=== PATIENT | female | born 1975 | race Caucasian/White ===

== ENCOUNTER 2025-08-28 07:24 | Inpatient (IN) | payer MEDICARE, SELFPAY ==
[2025-08-28] VITALS (29 sets, daily range): BP systolic 132–187; BP diastolic 62–115; PULSE 88–119; RESP 10–22; TEMP 36.5–37.9; O2SAT 97–100; BMI 23.5; BMI 25.5
--- NOTE | 2025-08-28 07:32 | ED.GENADULT ---
HPI - General Adult General Chief complaint: Abdominal Pain Stated complaint: High Blood Sugar Time Seen by Provider: 08/28/25 07:31 History of Present Illness HPI narrative: Patient is a 50-year-old female history of insulin-dependent diabetes gastric ulcer presenting today with elevated glucose. She reports that her sugars been quite high in the 500 she has given herself 100 units of insulin over last 24 hours 10 units at a time to help bring it down she got it down to 130 but it bout stripe backup. She also reports multiple episodes of rancid smelling diarrhea nausea and vomiting. She thinks she is having dark tarry stools and vomiting blood as well similar to when she had a gastric ulcer. Dizzy lightheaded and having some abdominal pain and cramping. She has not been on any antibiotics lately. No fever or chills. Related Data Home Medications ?Medication ?Instructions ?Recorded ?Confirmed insulin degludec 100 unit/mL 25 unit SUBCUT DAILY 08/28/25 08/28/25 subcutaneous solution (Tresiba U-100 Insulin) insulin lispro 100 unit/mL 1 sliding scale dose SUBCUT 08/28/25 08/28/25 subcutaneous pen (Humalog KwikPen USEASDIRECTD (U-100) Insulin) Allergies Allergy/AdvReac Type Severity Reaction Status Date / Time Sulfa (Sulfonamide Allergy Unknown Verified 08/28/25 07:30 Antibiotics) morphine AdvReac Unknown Verified 08/28/25 07:30 Patient History Social History household members: family and friend(s) Smoking Status: Current some day smoker alcohol intake: never Exam Initial Vital Signs Initial Vital Signs: Vital Signs Pulse Rate 115 H 08/28/25 07:29 Pulse Oximetry 98 08/28/25 07:29 GENERAL: Alert 42-year-old female appears unwell HEENT: Head atraumatic,EOMI, pupils reactive, face symmetric, moist mucous membranes CARDIOVASCULAR: Regular rate and rhythm without murmurs, rubs or gallops. RESPIRATORY: Breath sounds equal bilaterally, no wheezes rales or rhonchi. ABDOMEN: Soft, minimally tender no guarding or rebound RECTAL: Guaiac-positive no gross blood or melena : No CVA tenderness EXTREMITIES: Normal range of motion, no clubbing or edema. Neurovascularly intact NEUROLOGICAL: Alert and oriented x4.Normal gait and speech. Cranial nerves II through XII grossly intact. SKIN: Warm, dry, no laceration, no petechiae, no rashes or lesions. Course Orders Ordered: ED Orders 08/28/25 07:30 Complete Blood Count AUTO DIFF Stat Comprehensive Metabolic Panel Stat Ketones (Beta-Hydroxybutyrate) Stat Lactate (Lactic Acid) Stat Lipase Stat Magnesium Stat NT-proBNP (BNP-Adult 18+) Stat Troponin I Stat 08/28/25 07:37 Venous Blood Gas Routine 08/28/25 07:38 XR chest 1V Stat EKG-12 Lead Stat VBG [Venous Blood Gas] STAT 08/28/25 07:43 CT angio Abd/Pel GI Bleed Stat 08/28/25 07:50 Type and Screen Stat 08/28/25 08:38 Blood Culture Stat 08/28/25 11:00 BMP [Basic Metabolic Panel] Stat Urine Culture Stat Urine Microscopic Stat 08/28/25 11:37 Consult to Dietitian, Adult Routine 08/28/25 12:15 Basic Metabolic Panel Q4H 08/28/25 15:45 Basic Metabolic Panel Q4H 08/28/25 19:45 Basic Metabolic Panel Q4H 08/29/25 05:00 Basic Metabolic Panel DAILY Complete Blood Count AUTO DIFF DAILY Magnesium DAILY 08/30/25 05:00 Basic Metabolic Panel DAILY Complete Blood Count AUTO DIFF DAILY Magnesium DAILY 08/31/25 05:00 Basic Metabolic Panel DAILY Complete Blood Count AUTO DIFF DAILY Magnesium DAILY Acetaminophen (Acetaminophen 325 Mg Tablet) 650 mg PO Q6H PRN PRN Reason: Fever/Mild Pain (1-3) INSULIN DRIP PREMIX (Myxredlin Drip Premix) 100 unit in 100 mls @ 6.804 mls/hr IV TITRATE JAYJAY; Protocol Last Titration: 08/28/25 14:34 Dose: 0.11 unit/kg/hr, 7.4 mls/hr Documented By: Co-signed By: NIKO Admin: 08/28/25 08:21 Dose: 0.1 unit/kg/hr, 6.804 mls/hr Documented By: AKYLA Co-signed By: GHASSAN Sodium Chloride (Normal Saline 0.45%) 1,000 mls @ 125 mls/hr IV CONT JAYJAY Last Infusion: 08/28/25 12:47 Dose: Infused Documented By: Admin: 08/28/25 09:44 Dose: 125 mls/hr Documented By: KAYLA Dextrose (D10w) 100 mls @ 999 mls/hr IV PRN PRN PRN Reason: Hypoglycemia Dextrose/Sodium Chloride (Dextrose 5%-0.45% Ns) 1,000 mls @ 150 mls/hr IV CONT JAYJAY Last Admin: 08/28/25 12:42 Dose: 150 mls/hr Documented By: KAYLA Sodium Chloride (Normal Saline 0.9%) 1,000 mls @ 150 mls/hr IV CONT JAYJAY Metoclopramide HCl (Metoclopramide 10 Mg/2 Ml Inj) 10 mg IV Q4H PRN PRN Reason: Nausea And Vomiting Naloxone HCl (Naloxone 0.4 Mg/Ml Vial) 0.2 mg IV Q2MIN PRN PRN Reason: Opiate Reversal Ondansetron HCl (Ondansetron 4 Mg/2 Ml Inj) 4 mg IV Q4HR PRN PRN Reason: Nausea And Vomiting Pantoprazole Sodium (Pantoprazole 40 Mg Vial) 40 mg IV DAILY JAYJAY Discontinued Medications Sodium Chloride (Normal Saline 0.9%) 1,000 mls @ 1,000 mls/hr IV BOLUS ONE Stop: 08/28/25 08:37 Last Infusion: 08/28/25 09:04 Dose: Infused Documented By: Admin: 08/28/25 07:55 Dose: 1,000 mls/hr Documented By: KAYLA Sodium Chloride (Normal Saline 0.9%) 1,000 mls @ 1,000 mls/hr IV BOLUS ONE Stop: 08/28/25 09:11 Last Infusion: 08/28/25 09:45 Dose: Infused Documented By: Admin: 08/28/25 08:20 Dose: 1,000 mls/hr Documented By: KAYLA Ceftriaxone Sodium 1,000 mg/ (Sodium Chloride) 100 mls @ 200 mls/hr IV NOW ONE Stop: 08/28/25 09:43 Last Infusion: 08/28/25 10:38 Dose: Infused Documented By: Admin: 08/28/25 09:46 Dose: 200 mls/hr Documented By: KAYLA Sodium Chloride (Normal Saline 0.9%) 1,000 mls @ 999 mls/hr IV BOLUS ONE Stop: 08/28/25 12:34 Last Admin: 08/28/25 12:18 Dose: Not Given Documented By: KAYLA Metoclopramide HCl (Metoclopramide 10 Mg/2 Ml Inj) 10 mg IV NOW ONE Stop: 08/28/25 09:29 Last Admin: 08/28/25 09:33 Dose: 10 mg Documented By: KAYLA Pantoprazole Sodium (Pantoprazole 40 Mg Vial) 80 mg IV NOW ONE Stop: 08/28/25 07:39 Last Admin: 08/28/25 07:55 Dose: 80 mg Documented By: KAYLA Pantoprazole Sodium (Pantoprazole 40 Mg Vial) 40 mg IV DAILY JAYJAY Last Admin: 08/28/25 12:18 Dose: Not Given Documented By: KAYLA Vital Signs Vital signs: Vital Signs - 8 hr 08/28/25 07:29 08/28/25 07:30 08/28/25 07:30 Temperature Pulse Rate 115 H 119 H Respiratory Rate 18 Blood Pressure 180/82 H 159/72 H Pulse Oximetry 98 98 Oxygen Delivery Method Room Air 08/28/25 07:30 08/28/25 07:52 08/28/25 08:00 Temperature 97.7 F Pulse Rate 111 H 112 H Respiratory Rate 11 L 16 Blood Pressure Pulse Oximetry 99 99 Oxygen Delivery Method 08/28/25 08:00 08/28/25 08:29 08/28/25 08:29 Temperature Pulse Rate 113 H Respiratory Rate 14 Blood Pressure 177/71 H 167/115 H Pulse Oximetry 100 Oxygen Delivery Method 08/28/25 08:30 08/28/25 08:30 08/28/25 09:00 Temperature Pulse Rate 115 H Respiratory Rate 13 Blood Pressure 187/83 H 173/76 H Pulse Oximetry 100 Oxygen Delivery Method 08/28/25 09:00 08/28/25 09:30 08/28/25 09:30 Temperature Pulse Rate 116 H 109 H Respiratory Rate 13 14 Blood Pressure 153/79 H Pulse Oximetry 100 99 Oxygen Delivery Method 08/28/25 10:00 08/28/25 10:00 08/28/25 10:30 Temperature Pulse Rate 108 H Respiratory Rate 14 Blood Pressure 142/72 H 140/73 Pulse Oximetry 97 Oxygen Delivery Method 08/28/25 10:30 08/28/25 10:59 08/28/25 10:59 Temperature Pulse Rate 104 H 107 H Respiratory Rate 14 10 L Blood Pressure 153/77 H Pulse Oximetry 97 98 Oxygen Delivery Method 08/28/25 11:00 08/28/25 11:00 08/28/25 11:30 Temperature Pulse Rate 108 H 108 H Respiratory Rate 14 22 Blood Pressure 145/70 H Pulse Oximetry 98 99 Oxygen Delivery Method 08/28/25 11:30 08/28/25 12:00 08/28/25 12:00 Temperature Pulse Rate 107 H Respiratory Rate 15 Blood Pressure 158/72 H 147/68 H Pulse Oximetry 97 Oxygen Delivery Method 08/28/25 12:11 08/28/25 12:11 08/28/25 12:30 Temperature Pulse Rate 107 H 106 H Respiratory Rate 15 10 L Blood Pressure 146/68 H Pulse Oximetry 99 99 Oxygen Delivery Method 08/28/25 12:30 Temperature Pulse Rate Respiratory Rate Blood Pressure 161/74 H Pulse Oximetry Oxygen Delivery Method Medical Decision Making Lab Data 08/28/25 07:30 08/28/25 12:15 Labs: Lab Results 08/28/25 08/28/25 08/28/25 Range/Units 07:30 07:32 07:37 WBC 19.4 H (4.5-11.0) X10^3/uL RBC 5.40 H (4.0-5.2) X10^6/uL Hgb 15.6 (12.0-16.0) g/dL Hct 47.6 H (36-46) % MCV 88.1 (80-100) fL MCH 28.8 (26-34) PG MCHC 32.7 (30-36) % RDW 13.9 (11.6-14.8) % Plt Count 250 (150-400) X10^3/uL Neut % (Auto) 92.3 H (50-75) % Lymph % (Auto) 5.8 L (25-40) % Gillespie % (Auto) 1.5 L (3-14) % Eos % (Auto) 0.0 L (2-4) % Baso % (Auto) 0.4 (0-2) % Neut # (Auto) 48017 H (6370-6127) /uL Lymph # (Auto) 1100 (8156-2779) /uL Gillespie # (Auto) 300 (0-900) /uL Eos # (Auto) 0 (0-450) /uL Baso # (Auto) 100 (0-100) /uL VBG pH 7.23 L (7.33-7.43) VBG pCO2 17.9 L (45-50) mmHg VBG pO2 56 H (35-45) mmHg VBG HCO3 8 L (24-28) mmol/L VBG Total CO2 7 L (24-29) mmol/L VBG O2 Saturation 84 H (70-75) % VBG Base Excess -17.3 L (0-4) mmol/L Sodium 143 (137-145) mmol/L Potassium 4.8 (3.4-5.1) mmol/L Chloride 108 H (98-107) mmol/L Carbon Dioxide < 5 L* (22-32) mmol/L BUN 22 H (7-17) mg/dL Creatinine 0.85 (0.52-1.04) mg/dL Estimated GFR > 60 (>60) mL/min BUN/Creatinine Ratio 25.9 H (6-22) Glucose 548 H* (70-99) mg/dL POC Whole Bld Glucose 491 H* (70-99) mg/dL Lactate 1.8 (0.7-2.1) mmol/L Calcium 9.2 (8.4-10.2) mg/dL Magnesium 1.9 (1.6-2.3) mg/dL Total Bilirubin 0.8 (0.2-1.3) mg/dL AST 26 (14-36) IU/L ALT 20 (<35) IU/L Alkaline Phosphatase 106 (38-126) U/L Troponin I < 0.012 (0.01-0.034) ng/mL NT-Pro-B Natriuret Pep 195 H (<125) pg/mL Total Protein 8.1 (6.3-8.2) g/dL Albumin 4.8 (3.5-5.0) g/dL Globulin 3.3 (1.7-4.1) g/dL Albumin/Globulin Ratio 1.5 (1.0-2.8) Lipase 60 (23-300) U/L Urine RBC (0-5/HPF) Urine WBC (0-5/HPF) Ur Squamous Epith Cells (0-5/HPF) Urine Bacteria (None) Ur Culture Indicated? Vol Urine Centrifuged Ketones 10.3 H (<0.27) mmol/L Blood Type Antibody Screen 08/28/25 08/28/25 08/28/25 Range/Units 07:50 09:24 10:33 WBC (4.5-11.0) X10^3/uL RBC (4.0-5.2) X10^6/uL Hgb (12.0-16.0) g/dL Hct (36-46) % MCV (80-100) fL MCH (26-34) PG MCHC (30-36) % RDW (11.6-14.8) % Plt Count (150-400) X10^3/uL Neut % (Auto) (50-75) % Lymph % (Auto) (25-40) % Gillespie % (Auto) (3-14) % Eos % (Auto) (2-4) % Baso % (Auto) (0-2) % Neut # (Auto) (0907-6802) /uL Lymph # (Auto) (4687-4874) /uL Gillespie # (Auto) (0-900) /uL Eos # (Auto) (0-450) /uL Baso # (Auto) (0-100) /uL VBG pH (7.33-7.43) VBG pCO2 (45-50) mmHg VBG pO2 (35-45) mmHg VBG HCO3 (24-28) mmol/L VBG Total CO2 (24-29) mmol/L VBG O2 Saturation (70-75) % VBG Base Excess (0-4) mmol/L Sodium (137-145) mmol/L Potassium (3.4-5.1) mmol/L Chloride (98-107) mmol/L Carbon Dioxide (22-32) mmol/L BUN (7-17) mg/dL Creatinine (0.52-1.04) mg/dL Estimated GFR (>60) mL/min BUN/Creatinine Ratio (6-22) Glucose (70-99) mg/dL POC Whole Bld Glucose 427 H 337 H (70-99) mg/dL Lactate (0.7-2.1) mmol/L Calcium (8.4-10.2) mg/dL Magnesium (1.6-2.3) mg/dL Total Bilirubin (0.2-1.3) mg/dL AST (14-36) IU/L ALT (<35) IU/L Alkaline Phosphatase (38-126) U/L Troponin I (0.01-0.034) ng/mL NT-Pro-B Natriuret Pep (<125) pg/mL Total Protein (6.3-8.2) g/dL Albumin (3.5-5.0) g/dL Globulin (1.7-4.1) g/dL Albumin/Globulin Ratio (1.0-2.8) Lipase (23-300) U/L Urine RBC (0-5/HPF) Urine WBC (0-5/HPF) Ur Squamous Epith Cells (0-5/HPF) Urine Bacteria (None) Ur Culture Indicated? Vol Urine Centrifuged Ketones (<0.27) mmol/L Blood Type O Negative Antibody Screen Negative 08/28/25 08/28/25 08/28/25 Range/Units 11:00 11:30 11:31 WBC (4.5-11.0) X10^3/uL RBC (4.0-5.2) X10^6/uL Hgb (12.0-16.0) g/dL Hct (36-46) % MCV (80-100) fL MCH (26-34) PG MCHC (30-36) % RDW (11.6-14.8) % Plt Count (150-400) X10^3/uL Neut % (Auto) (50-75) % Lymph % (Auto) (25-40) % Gillespie % (Auto) (3-14) % Eos % (Auto) (2-4) % Baso % (Auto) (0-2) % Neut # (Auto) (3990-6744) /uL Lymph # (Auto) (0936-7331) /uL Gillespie # (Auto) (0-900) /uL Eos # (Auto) (0-450) /uL Baso # (Auto) (0-100) /uL VBG pH (7.33-7.43) VBG pCO2 (45-50) mmHg VBG pO2 (35-45) mmHg VBG HCO3 (24-28) mmol/L VBG Total CO2 (24-29) mmol/L VBG O2 Saturation (70-75) % VBG Base Excess (0-4) mmol/L Sodium 146 H (137-145) mmol/L Potassium 3.7 (3.4-5.1) mmol/L Chloride 116 H (98-107) mmol/L Carbon Dioxide 10 L (22-32) mmol/L BUN 20 H (7-17) mg/dL Creatinine 0.79 (0.52-1.04) mg/dL Estimated GFR > 60 (>60) mL/min BUN/Creatinine Ratio 25.3 H (6-22) Glucose 316 H D (70-99) mg/dL POC Whole Bld Glucose 308 H 283 H (70-99) mg/dL Lactate (0.7-2.1) mmol/L Calcium 8.5 (8.4-10.2) mg/dL Magnesium (1.6-2.3) mg/dL Total Bilirubin (0.2-1.3) mg/dL AST (14-36) IU/L ALT (<35) IU/L Alkaline Phosphatase (38-126) U/L Troponin I (0.01-0.034) ng/mL NT-Pro-B Natriuret Pep (<125) pg/mL Total Protein (6.3-8.2) g/dL Albumin (3.5-5.0) g/dL Globulin (1.7-4.1) g/dL Albumin/Globulin Ratio (1.0-2.8) Lipase (23-300) U/L Urine RBC 5-10/hpf H (0-5/HPF) Urine WBC 1-5/hpf (0-5/HPF) Ur Squamous Epith Cells 1-5 /hpf (0-5/HPF) Urine Bacteria Occasional (0-1) (None) Ur Culture Indicated? Cult not indicated Vol Urine Centrifuged 10ml (spun) Ketones (<0.27) mmol/L Blood Type Antibody Screen 08/28/25 08/28/25 Range/Units 12:15 12:26 WBC (4.5-11.0) X10^3/uL RBC (4.0-5.2) X10^6/uL Hgb (12.0-16.0) g/dL Hct (36-46) % MCV (80-100) fL MCH (26-34) PG MCHC (30-36) % RDW (11.6-14.8) % Plt Count (150-400) X10^3/uL Neut % (Auto) (50-75) % Lymph % (Auto) (25-40) % Gillespie % (Auto) (3-14) % Eos % (Auto) (2-4) % Baso % (Auto) (0-2) % Neut # (Auto) (1997-4647) /uL Lymph # (Auto) (8150-8610) /uL Gillespie # (Auto) (0-900) /uL Eos # (Auto) (0-450) /uL Baso # (Auto) (0-100) /uL VBG pH (7.33-7.43) VBG pCO2 (45-50) mmHg VBG pO2 (35-45) mmHg VBG HCO3 (24-28) mmol/L VBG Total CO2 (24-29) mmol/L VBG O2 Saturation (70-75) % VBG Base Excess (0-4) mmol/L Sodium 146 H (137-145) mmol/L Potassium 4.1 (3.4-5.1) mmol/L Chloride 116 H (98-107) mmol/L Carbon Dioxide 12 L (22-32) mmol/L BUN 20 H (7-17) mg/dL Creatinine 0.76 (0.52-1.04) mg/dL Estimated GFR > 60 (>60) mL/min BUN/Creatinine Ratio 26.3 H (6-22) Glucose 250 H (70-99) mg/dL POC Whole Bld Glucose 238 H (70-99) mg/dL Lactate (0.7-2.1) mmol/L Calcium 8.4 (8.4-10.2) mg/dL Magnesium (1.6-2.3) mg/dL Total Bilirubin (0.2-1.3) mg/dL AST (14-36) IU/L ALT (<35) IU/L Alkaline Phosphatase (38-126) U/L Troponin I (0.01-0.034) ng/mL NT-Pro-B Natriuret Pep (<125) pg/mL Total Protein (6.3-8.2) g/dL Albumin (3.5-5.0) g/dL Globulin (1.7-4.1) g/dL Albumin/Globulin Ratio (1.0-2.8) Lipase (23-300) U/L Urine RBC (0-5/HPF) Urine WBC (0-5/HPF) Ur Squamous Epith Cells (0-5/HPF) Urine Bacteria (None) Ur Culture Indicated? Vol Urine Centrifuged Ketones (<0.27) mmol/L Blood Type Antibody Screen Point of Care Testing Glucose POC 491 Urine Dip Bedside Urine Glucose 100 mg/dl Bedside Urine Bilirubin - Negative Bedside Urine Ketone +++ 80 Urine Specific Davidson 1.015 Bedside Urine Occult Blood +++ Bedside Urine pH 6.0 Bedside Urine Protein + 30 Bedside Urine Urobilinogen - Negative Bedside Urine Nitrite - Negative Bedside Urine Leukocytes - Negative Esterase Point of care testing: Point of Care Testing Glucose POC 491 Urine Dip Bedside Urine Glucose 100 mg/dl Bedside Urine Bilirubin - Negative Bedside Urine Ketone +++ 80 Urine Specific Davidson 1.015 Bedside Urine Occult Blood +++ Bedside Urine pH 6.0 Bedside Urine Protein + 30 Bedside Urine Urobilinogen - Negative Bedside Urine Nitrite - Negative Bedside Urine Leukocytes - Negative Esterase Imaging Data CT scan - abdomen/pelvis: Radiologist's Impression: PROCEDURE: CT ANGIO ABD/PEL GI BLEED INDICATIONS: gi bleed TECHNIQUE: After the administration of intravenous contrast, 2.5 mm thick sections acquired from the diaphragm to the symphysis. 10 mm maximum-intensity projection (MIP) reformats were then acquired. For radiation dose reduction, the following was used: automated exposure control. COMPARISON: None. FINDINGS: Image Quality: Diagnostic. Abdominal aorta: No aortic aneurysm or evidence of acute aortic syndrome. Mesenteric arteries: Patent without hemodynamically significant stenosis. Renal arteries: Patent without hemodynamically significant stenosis. OTHER: Lower Chest: No significant findings. Liver: No solid mass. Gallbladder: Gallbladder surgically absent. Biliary ducts: No biliary dilation. Pancreas: No ductal dilation. Spleen: Size is within normal limits. Adrenal Glands: No adrenal nodules. Kidneys and Ureters: No hydronephrosis. No solid mass. No complex renal cystic lesion which requires follow up. Stomach and Bowel: Small bowel normal caliber. No extravasation of contrast is identified. No evidence of obstruction. The colon is decompressed somewhat limiting evaluation however there is questionable wall thickening of a long segment of the descending and sigmoid colon which may be exaggerated from underdistention. No significant diverticula. No fat stranding surrounding the colon. Normal appendix Peritoneum: No abnormal intraperitoneal fluid. No free air. Ventral Wall: No hernia. Abdominal Nodes: No retroperitoneal or mesenteric adenopathy by size criteria. Vessels: Aorta and inferior vena cava are normal in size. PELVIS: Pelvic Organs: Unremarkable. Bladder: Unremarkable. Pelvic Nodes: No enlarged lymph nodes. Miscellaneous: No inguinal hernias are seen. Bones: No aggressive osseous abnormality. IMPRESSION: No contrast extravasation identified. Long segment bowel wall thickening of the descending and sigmoid colon possibly exaggerated by underdistention, correlate for colitis. Dictated by: Sylvain Chaney M.D. on 08/28/2025 at 8:14 Approved by: Sylvain Chaney M.D. on 08/28/2025 at 8:22 Chest x-ray: Radiologist's Impression: PROCEDURE: XR CHEST 1V INDICATIONS: chest pain TECHNIQUE: One view of the chest was acquired. COMPARISON: None. FINDINGS: Surgical changes and devices: None. Lungs and pleura: Lungs are clear. No pleural effusions or pneumothorax. Mediastinum: Mediastinal contours appear normal. Heart size is normal. Bones and chest wall: No suspicious bony lesions. Overlying soft tissues appear unremarkable. IMPRESSION: No acute cardiopulmonary abnormality is seen. Dictated by: Sylvain Chaney M.D. on 08/28/2025 at 8:23 ECG Data Attestation: I personally reviewed and interpreted this ECG as follows: Prior ECG tracings: not available for review Interpretation: Normal sinus rhythm rate 114 TX interval 136 QRS [address] changes no T-wave inversion MDM Narrative Medical decision making narrative: MDM CC: Diarrhea elevated glucose Complicating co-morbidities: Insulin-dependent diabetes Data collected from: Patient Medical records reviewed: None Differential considered: GI bleed, DKA, hyperglycemia diverticulitis ischemic bowel sepsis Exam documented above, pertinent findings include: Diaphoretic minimally tender abdomen guaiac-positive tachycardic Lab Test results independently reviewed as above. Pertinent findings: Venous pH 7.23 Anion gap 30 Glucose 548 Ketone 10.3 Lactate 1.8 All consistent with DKA CBC 19, no anemia hemoglobin 15.6 hematocrit 47.6 mild left shift Chemistry panel shows a potassium of 4.8 sodium 143 Bilirubin liver enzymes within normal limits Troponin negative Independently reviewed EKG as above Sinus rhythm no ischemia Imaging studies independently reviewed: Chest x-ray no acute cardiopulmonary process CT abdomen pelvis no active bleeding concern for wall thickening possible colitis Consultations: Dr. Allison updated on patient's symptoms test results and kindly accepts patient Treatments: Protonix, insulin drip IV fluid 2 L, Rocephin Re-evaluations: Patient is feeling better no longer nauseous heart rate is improving Discussion: Patient is a 42-year-old female with history of diarrhea nausea vomiting. She is now in DKA with a pH is 7 point 2 and an anion gap of 30. She was given 2 L of IV fluids and started on insulin drip. I suspect a gastroenteritis. She has no active bleeding she is not anemic. She has blood cultures parenting empirically given a dose of Rocephin. She has not had any diarrhea here in the ED. Critical Care Time Critical Care Time Critical Care Time: Yes Total Critical Care Time: 32 Attestation: The high probability of a clinically significant, sudden or life threatening deterioration of the [cardiovascular] system(s) required my full and direct attention, intervention and personal management. The aggregate critical care time was 32 minutes. This time is in addition to time spent performing reported procedures but includes the following: [x] Data Review and interpretation [x] Patient assessment and monitoring of vital signs [x] Documentation [x] Medication orders and management Discharge Plan Departure Patient Disposition: Admitted As Inpatient Clinical Impression: DKA (diabetic ketoacidosis), Gastroenteritis Admit Date/Time: 08/28/25 12:40 Admit Provider: Polly Allison
--- NOTE | 2025-08-28 07:35 | EKG_ITS ---
[id number] [address] Test Date: 2025-08-28 Pat Name: Parisa Clemente Department: Room: Gender: Female [employer]: : 1975 Requested By: Order Number: [id number] Reading MD: Logan Guerrero MD Measurements Intervals Pine Rate: 114 P: 75 MD: 136 QRS: 74 QRSD: 84 T: 60 QT: 342 QTc: 471 Interpretive Statements Sinus tachycardia Cannot rule out Anterior infarct , age undetermined Electronically Signed On 08-28-2025 8:32:03 PST by Logan Guerrero MD
--- NOTE | 2025-08-28 07:38 | DI.RAD.S_ITS ---
PROCEDURE: XR CHEST 1V INDICATIONS: chest pain TECHNIQUE: One view of the chest was acquired. COMPARISON: None. FINDINGS: Surgical changes and devices: None. Lungs and pleura: Lungs are clear. No pleural effusions or pneumothorax. Mediastinum: Mediastinal contours appear normal. Heart size is normal. Bones and chest wall: No suspicious bony lesions. Overlying soft tissues appear unremarkable. IMPRESSION: No acute cardiopulmonary abnormality is seen. Dictated by: Sylvain Chaney M.D. on 08/28/2025 at 8:23 Approved by: Sylvain Chaney M.D. on 08/28/2025 at 8:23
[2025-08-28 07:40] LABS: Base Excess VBG -17.3 mmol/L (0-4); HCO3 VBG 8 mmol/L (24-28); Oxygen Saturation VBG 84 % (70-75); PCO2 VBG 17.9 mmHg (45-50); PO2 VBG 56 mmHg (35-45); Total CO2 VBG 7 mmol/L (24-29); pH VBG 7.23 (7.33-7.43)
--- NOTE | 2025-08-28 07:43 | DI.CT.S_ITS ---
PROCEDURE: CT ANGIO ABD/PEL GI BLEED INDICATIONS: gi bleed TECHNIQUE: After the administration of intravenous contrast, 2.5 mm thick sections acquired from the diaphragm to the symphysis. 10 mm maximum-intensity projection (MIP) reformats were then acquired. For radiation dose reduction, the following was used: automated exposure control. COMPARISON: None. FINDINGS: Image Quality: Diagnostic. Abdominal aorta: No aortic aneurysm or evidence of acute aortic syndrome. Mesenteric arteries: Patent without hemodynamically significant stenosis. Renal arteries: Patent without hemodynamically significant stenosis. OTHER: Lower Chest: No significant findings. Liver: No solid mass. Gallbladder: Gallbladder surgically absent. Biliary ducts: No biliary dilation. Pancreas: No ductal dilation. Spleen: Size is within normal limits. Adrenal Glands: No adrenal nodules. Kidneys and Ureters: No hydronephrosis. No solid mass. No complex renal cystic lesion which requires follow up. Stomach and Bowel: Small bowel normal caliber. No extravasation of contrast is identified. No evidence of obstruction. The colon is decompressed somewhat limiting evaluation however there is questionable wall thickening of a long segment of the descending and sigmoid colon which may be exaggerated from underdistention. No significant diverticula. No fat stranding surrounding the colon. Normal appendix Peritoneum: No abnormal intraperitoneal fluid. No free air. Ventral Wall: No hernia. Abdominal Nodes: No retroperitoneal or mesenteric adenopathy by size criteria. Vessels: Aorta and inferior vena cava are normal in size. PELVIS: Pelvic Organs: Unremarkable. Bladder: Unremarkable. Pelvic Nodes: No enlarged lymph nodes. Miscellaneous: No inguinal hernias are seen. Bones: No aggressive osseous abnormality. IMPRESSION: No contrast extravasation identified. Long segment bowel wall thickening of the descending and sigmoid colon possibly exaggerated by underdistention, correlate for colitis. Dictated by: Sylvain Chaney M.D. on 08/28/2025 at 8:14 Approved by: Sylvain Chaney M.D. on 08/28/2025 at 8:22
[2025-08-28 07:48] LABS: Add Manual Diff / Slide Review NO; Hematocrit 47.6 % (36-46); Hemoglobin 15.6 g/dL (12.0-16.0); Lymphocytes Absolute Auto 1100 /uL (1100-4500); Mean Corpuscular HGB Conc 32.7 % (30-36); Mean Corpuscular Hemoglobin 28.8 PG (26-34); Mean Corpuscular Volume 88.1 fL (80-100); Platelet Count 250 X10^3/uL (150-400)
[2025-08-28] MEDS: PANTOPRAZOLE 40 MG VIAL 80 MG IV (07:55)
[2025-08-28] MEDS: SODIUM CHLORIDE 0.9% 1,000 ML 1000 ML IV ×2 (07:55→08:20)
[2025-08-28 08:04] LABS: Alanine Aminotransferase 20 IU/L (<35); Albumin 4.8 g/dL (3.5-5.0); Albumin Globulin Ratio 1.5 (1.0-2.8); Alkaline Phosphatase 106 U/L (38-126); Blood Urea Nitrogen 22 mg/dL (7-17); Calcium 9.2 mg/dL (8.4-10.2); Chloride 108 mmol/L (98-107); Estimated Glomerular Filt Rate > 60 mL/min (>60); Globulin 3.3 g/dL (1.7-4.1); HEMOLYSIS 49 (0-50); Lactate (Lactic Acid) 1.8 mmol/L (0.7-2.1); Lipase 60 U/L (23-300); Magnesium 1.9 mg/dL (1.6-2.3); Potassium 4.8 mmol/L (3.4-5.1); Sodium 143 mmol/L (137-145); Total Protein 8.1 g/dL (6.3-8.2)
[2025-08-28 08:07] LABS: Carbon Dioxide < 5 mmol/L (22-32); Glucose 548 mg/dL (70-99)
[2025-08-28 08:16] LABS: NT-proBNP (BNP-Adult 18+) 195 pg/mL (<125); Troponin I < 0.012 ng/mL (0.01-0.034)
[2025-08-28] MEDS: INSULIN DRIP PREMIX 100 UNIT/100 ML PLAST..BAG 6.804 UNIT IV (08:21)
[2025-08-28 08:49] LABS: Ketones (Beta-Hydroxybutyrate) 10.3 mmol/L (<0.27)
--- NOTE | 2025-08-28 09:17 | PC.NURSE ---
Jennifer from pharmacy consulted about insulin being able to be ran with 1/2 NS. Reports there shold not be any issues
[2025-08-28] MEDS: METOCLOPRAMIDE 10 MG/2 ML INJ IV ×2 (09:33→16:50)
[2025-08-28] MEDS: SODIUM CHLORIDE 0.45% 1,000 ML 125 ML IV (09:44)
--- NOTE | 2025-08-28 09:49 | PC.NURSE ---
pt able to tolerate oral swabs and ice chips.
--- NOTE | 2025-08-28 09:50 | PC.NURSE ---
pt states unable to urinate at this time
--- NOTE | 2025-08-28 11:17 | PC.NURSE ---
pt starting to feel better. States her nausea is under control. Pt able to ambulate on own to restroom
[2025-08-28 11:20] LABS: Blood Urea Nitrogen 20 mg/dL (7-17); Calcium 8.5 mg/dL (8.4-10.2); Carbon Dioxide 10 mmol/L (22-32); Chloride 116 mmol/L (98-107); Estimated Glomerular Filt Rate > 60 mL/min (>60); Glucose 316 mg/dL (70-99); HEMOLYSIS < 15 (0-50); Potassium 3.7 mmol/L (3.4-5.1); Sodium 146 mmol/L (137-145)
[2025-08-28 11:41] LABS: Culture Indicated Urine Cult Not Indicated
--- NOTE | 2025-08-28 12:38 | PC.NURSE ---
Attempted to reach provider about medication orders. Did not have a response. This RN will continue to follow protocol
[2025-08-28 12:40] LABS: Blood Urea Nitrogen 20 mg/dL (7-17); Calcium 8.4 mg/dL (8.4-10.2); Carbon Dioxide 12 mmol/L (22-32); Chloride 116 mmol/L (98-107); Estimated Glomerular Filt Rate > 60 mL/min (>60); Glucose 250 mg/dL (70-99); HEMOLYSIS < 15 (0-50); Potassium 4.1 mmol/L (3.4-5.1); Sodium 146 mmol/L (137-145)
[2025-08-28] MEDS: DEXTROSE 5%-0.45% NS 1,000 ML 150 ML IV (12:42)
--- NOTE | 2025-08-28 12:48 | PC.NURSE ---
started D5 1/2NS per provider order
--- NOTE | 2025-08-28 13:08 | PC.NURSE ---
pt given food tray (clear liquid diet)
[2025-08-28] MEDS: SODIUM CHLORIDE 0.9% 1,000 ML 150 ML IV (14:44)
[2025-08-28] MEDS: ONDANSETRON 4 MG/2 ML INJ IV (14:44)
[2025-08-28 15:59] LABS: Blood Urea Nitrogen 19 mg/dL (7-17); Calcium 8.5 mg/dL (8.4-10.2); Carbon Dioxide 14 mmol/L (22-32); Chloride 117 mmol/L (98-107); Estimated Glomerular Filt Rate > 60 mL/min (>60); Glucose 202 mg/dL (70-99); HEMOLYSIS 16 (0-50); Potassium 3.8 mmol/L (3.4-5.1); Sodium 145 mmol/L (137-145)
[2025-08-28] MEDS: POTASSIUM CHLORIDE IN WATER 10 MEQ/100 ML PIGGYBACK 100 MEQ IV ×4 (16:50→19:58)
[2025-08-28] MEDS: SODIUM CHLORIDE 0.9% 1,000 ML 100 ML IV ×2 (18:01→22:16)
[2025-08-28 19:10] LABS: Hemoglobin A1C% w Est Avg Glu 11.8 % (4.0-6.0)
--- NOTE | 2025-08-28 19:22 | P.HP_ITS ---
History of Present Illness History of Present Illness Chief complaint: High Blood Sugar Narrative: 50-year-old female with type 1 diabetes, prior history bleeding ulcer, and occasional tobacco use who presents to the emergency department complaining of nausea, profuse vomiting and diarrhea. She reports she was in her usual state of health until a couple days prior to admission, when she developed nausea and vomiting. She reports initially the emesis consisted of food products. Then it became dark brown, nearly black per her report. She described it looking like coffee grounds. She notes thereafter, she developed profuse liquid black diarrhea. She reports it got so bad she could not tell when she was passing stool. Her daughters had to help clean her up. She was at the point where she could not hold down even a glass of water. Her blood sugars had been as high as 500. She gave herself 100 units of insulin in the last 24 hours, briefly got it down to 130 but it continued to go back up. She was having dizziness and lightheadedness as well. Some abdominal pain and cramping. She reports a prior history of a gastric ulcer with bleeding some years ago. She was on a 12 week course of a PPI at that time. She does not recall if it was H pylori positive or not. She denies any use of aspirin or NSAIDs. She is not steroid dependent. She does smoke intermittently. She does not drink any alcohol. She reports she took her Tresiba this morning, 25 units. She does not recall when her last hemoglobin A1c was but thinks it was about a year ago. She notes her blood sugars are typically in the 180s to low 200s. She has had significant lows in the past although none recently. She does not typically have high blood sugars beyond the mid 200s. No fevers or chills. No ill exposures. She does note a few weeks ago she developed some abdominal discomfort which was reminiscent of the abdominal pain she had with her ulcer. She actually considered restarting Prilosec, but had not done so. [facility] Social History household members: family and friend(s) Smoking Status: Current some day smoker alcohol intake: never Meds Home Medications and Allergies Home Medications ?Medication ?Instructions ?Recorded ?Confirmed ?Type insulin degludec 100 unit/mL 25 unit SUBCUT DAILY 08/1308/28/25 History subcutaneous solution (Tresiba U-100 Insulin) insulin lispro 100 unit/mL 1 sliding scale dose SUBCUT 08/28/25 08/28/25 History subcutaneous pen (Humalog KwikPen USEASDIRECTD (U-100) Insulin) Allergies Allergy/AdvReac Type Severity Reaction Status Date / Time Sulfa (Sulfonamide Allergy Unknown Verified 08/28/25 07:30 Antibiotics) morphine AdvReac Unknown Verified 08/28/25 07:30 Review of Systems Review of Systems Narrative: All other systems were reviewed negative Exam Vital Signs (past 8 hours): - 08/28/25 11:30 08/28/25 11:30 08/28/25 12:00 Temperature Pulse Rate 108 H Respiratory Rate 22 Blood Pressure 158/72 H 147/68 H Pulse Oximetry 99 Oxygen Delivery Method Oxygen Flow Rate 08/28/25 12:00 08/28/25 12:11 08/28/25 12:11 Temperature Pulse Rate 107 H 107 H Respiratory Rate 15 15 Blood Pressure 146/68 H Pulse Oximetry 97 99 Oxygen Delivery Method Oxygen Flow Rate 08/28/25 12:30 08/28/25 12:30 08/28/25 13:00 Temperature Pulse Rate 106 H Respiratory Rate 10 L Blood Pressure 161/74 H 151/68 H Pulse Oximetry 99 Oxygen Delivery Method Oxygen Flow Rate 08/28/25 13:00 08/28/25 13:30 08/28/25 13:30 Temperature Pulse Rate 105 H 107 H Respiratory Rate 16 15 Blood Pressure 143/63 H Pulse Oximetry 98 98 Oxygen Delivery Method Oxygen Flow Rate 08/28/25 14:11 08/28/25 14:15 08/28/25 14:15 Temperature Pulse Rate 108 H 105 H Respiratory Rate 11 L Blood Pressure 161/74 H Pulse Oximetry 100 Oxygen Delivery Method Oxygen Flow Rate 08/28/25 14:30 08/28/25 14:52 08/28/25 15:00 Temperature 100.2 F H Pulse Rate 101 H 99 H Respiratory Rate 13 15 Blood Pressure 144/66 H Pulse Oximetry 100 98 Oxygen Delivery Method Room Air Oxygen Flow Rate 0 08/28/25 16:00 08/28/25 17:00 Temperature 99.3 F Pulse Rate 101 H 97 H Respiratory Rate 15 12 Blood Pressure 146/62 H 143/73 H Pulse Oximetry 100 100 Oxygen Delivery Method Oxygen Flow Rate 0 0 Oxygen Delivery Method Room Air Oxygen Flow Rate 0 Narrative Exam Narrative: GEN: Very pleasant middle-aged female, Alert and oriented x3, no acute distress HEENT: Normocephalic, face symmetric, pupils equal round reactive to light, extraocular movements intact, sclerae anicteric, conjunctiva clear, nares patent, oropharynx reveals an intact soft and hard palate with moist mucous membranes, dentition is fair NECK: Supple, no lymphadenopathy, thyroid without enlargement or nodularity, carotids no bruits CHEST: Respiratory excursions symmetric, clear to auscultation bilaterally CV: Regular rate and rhythm, no murmurs, rubs, gallops, PMI nondisplaced ABD: Soft, nontender, nondistended, bowel sounds present in all 4 quadrants, no organomegaly or masses appreciated EXTR: Warm, well perfused, no clubbing/cyanosis/edema SKIN: Warm and dry, without rash NEURO: Alert and oriented x3, grossly intact Objective Labs 08/28/25 07:30 08/28/25 15:41 Labs: Laboratory Results - last 24 hr 08/28/25 08/28/25 08/28/25 07:30 07:32 07:37 WBC 19.4 H RBC 5.40 H Hgb 15.6 Hct 47.6 H MCV 88.1 MCH 28.8 MCHC 32.7 RDW 13.9 Plt Count 250 Neut % (Auto) 92.3 H Lymph % (Auto) 5.8 L [place] % (Auto) 1.5 L Eos % (Auto) 0.0 L Baso % (Auto) 0.4 Neut # (Auto) 48372 H Lymph # (Auto) 1100 [place] # (Auto) 300 Eos # (Auto) 0 Baso # (Auto) 100 VBG pH 7.23 L VBG pCO2 17.9 L VBG pO2 56 H VBG HCO3 8 L VBG Total CO2 7 L VBG O2 Saturation 84 H VBG Base Excess -17.3 L Sodium 143 Potassium 4.8 Chloride 108 H Carbon Dioxide < 5 L* BUN 22 H Creatinine 0.85 Estimated GFR > 60 BUN/Creatinine Ratio 25.9 H Glucose 548 H* POC Whole Bld Glucose 491 H* Hemoglobin A1c 11.8 H Lactate 1.8 Calcium 9.2 Magnesium 1.9 Total Bilirubin 0.8 AST 26 ALT 20 Alkaline Phosphatase 106 Troponin I < 0.012 NT-Pro-B Natriuret Pep 195 H Total Protein 8.1 Albumin 4.8 Globulin 3.3 Albumin/Globulin Ratio 1.5 Lipase 60 Urine RBC Urine WBC Ur Squamous Epith Cells Urine Bacteria Ur Culture Indicated? Vol Urine Centrifuged Ketones 10.3 H Blood Type Antibody Screen 08/28/25 08/28/25 08/28/25 07:50 09:24 10:33 WBC RBC Hgb Hct MCV MCH MCHC RDW Plt Count Neut % (Auto) Lymph % (Auto) [place] % (Auto) Eos % (Auto) Baso % (Auto) Neut # (Auto) Lymph # (Auto) [place] # (Auto) Eos # (Auto) Baso # (Auto) VBG pH VBG pCO2 VBG pO2 VBG HCO3 VBG Total CO2 VBG O2 Saturation VBG Base Excess Sodium Potassium Chloride Carbon Dioxide BUN Creatinine Estimated GFR BUN/Creatinine Ratio Glucose POC Whole Bld Glucose 427 H 337 H Hemoglobin A1c Lactate Calcium Magnesium Total Bilirubin AST ALT Alkaline Phosphatase Troponin I NT-Pro-B Natriuret Pep Total Protein Albumin Globulin Albumin/Globulin Ratio Lipase Urine RBC Urine WBC Ur Squamous Epith Cells Urine Bacteria Ur Culture Indicated? Vol Urine Centrifuged Ketones Blood Type O Negative Antibody Screen Negative 08/28/25 08/28/25 08/28/25 11:00 11:30 11:31 WBC RBC Hgb Hct MCV MCH MCHC RDW Plt Count Neut % (Auto) Lymph % (Auto) [place] % (Auto) Eos % (Auto) Baso % (Auto) Neut # (Auto) Lymph # (Auto) [place] # (Auto) Eos # (Auto) Baso # (Auto) VBG pH VBG pCO2 VBG pO2 VBG HCO3 VBG Total CO2 VBG O2 Saturation VBG Base Excess Sodium 146 H Potassium 3.7 Chloride 116 H Carbon Dioxide 10 L BUN 20 H Creatinine 0.79 Estimated GFR > 60 BUN/Creatinine Ratio 25.3 H Glucose 316 H D POC Whole Bld Glucose 308 H 283 H Hemoglobin A1c Lactate Calcium 8.5 Magnesium Total Bilirubin AST ALT Alkaline Phosphatase Troponin I NT-Pro-B Natriuret Pep Total Protein Albumin Globulin Albumin/Globulin Ratio Lipase Urine RBC 5-10/hpf H Urine WBC 1-5/hpf Ur Squamous Epith Cells 1-5 /hpf Urine Bacteria Occasional (0-1) Ur Culture Indicated? Cult not indicated Vol Urine Centrifuged 10ml (spun) Ketones Blood Type Antibody Screen 08/28/25 08/28/25 08/28/25 12:15 12:26 13:30 WBC RBC Hgb Hct MCV MCH MCHC RDW Plt Count Neut % (Auto) Lymph % (Auto) [place] % (Auto) Eos % (Auto) Baso % (Auto) Neut # (Auto) Lymph # (Auto) [place] # (Auto) Eos # (Auto) Baso # (Auto) VBG pH VBG pCO2 VBG pO2 VBG HCO3 VBG Total CO2 VBG O2 Saturation VBG Base Excess Sodium 146 H Potassium 4.1 Chloride 116 H Carbon Dioxide 12 L BUN 20 H Creatinine 0.76 Estimated GFR > 60 BUN/Creatinine Ratio 26.3 H Glucose 250 H POC Whole Bld Glucose 238 H 244 H Hemoglobin A1c Lactate Calcium 8.4 Magnesium Total Bilirubin AST ALT Alkaline Phosphatase Troponin I NT-Pro-B Natriuret Pep Total Protein Albumin Globulin Albumin/Globulin Ratio Lipase Urine RBC Urine WBC Ur Squamous Epith Cells Urine Bacteria Ur Culture Indicated? Vol Urine Centrifuged Ketones Blood Type Antibody Screen 08/28/25 08/28/25 08/28/25 14:29 15:29 15:41 WBC RBC Hgb Hct MCV MCH MCHC RDW Plt Count Neut % (Auto) Lymph % (Auto) [place] % (Auto) Eos % (Auto) Baso % (Auto) Neut # (Auto) Lymph # (Auto) [place] # (Auto) Eos # (Auto) Baso # (Auto) VBG pH VBG pCO2 VBG pO2 VBG HCO3 VBG Total CO2 VBG O2 Saturation VBG Base Excess Sodium 145 Potassium 3.8 Chloride 117 H Carbon Dioxide 14 L BUN 19 H Creatinine 0.67 Estimated GFR > 60 BUN/Creatinine Ratio 28.4 H Glucose 202 H POC Whole Bld Glucose 259 H 182 H Hemoglobin A1c Lactate Calcium 8.5 Magnesium Total Bilirubin AST ALT Alkaline Phosphatase Troponin I NT-Pro-B Natriuret Pep Total Protein Albumin Globulin Albumin/Globulin Ratio Lipase Urine RBC Urine WBC Ur Squamous Epith Cells Urine Bacteria Ur Culture Indicated? Vol Urine Centrifuged Ketones Blood Type Antibody Screen 08/28/25 08/28/25 16:37 17:37 WBC RBC Hgb Hct MCV MCH MCHC RDW Plt Count Neut % (Auto) Lymph % (Auto) [place] % (Auto) Eos % (Auto) Baso % (Auto) Neut # (Auto) Lymph # (Auto) [place] # (Auto) Eos # (Auto) Baso # (Auto) VBG pH VBG pCO2 VBG pO2 VBG HCO3 VBG Total CO2 VBG O2 Saturation VBG Base Excess Sodium Potassium Chloride Carbon Dioxide BUN Creatinine Estimated GFR BUN/Creatinine Ratio Glucose POC Whole Bld Glucose 168 H 146 H Hemoglobin A1c Lactate Calcium Magnesium Total Bilirubin AST ALT Alkaline Phosphatase Troponin I NT-Pro-B Natriuret Pep Total Protein Albumin Globulin Albumin/Globulin Ratio Lipase Urine RBC Urine WBC Ur Squamous Epith Cells Urine Bacteria Ur Culture Indicated? Vol Urine Centrifuged Ketones Blood Type Antibody Screen Assessment & Plan Assessment & Plan narrative: 1. DKA Patient presented with DKA as evidenced by decreased PH, anion gap acidosis, and ketonemia. She was initiated on the DKA protocol. Blood sugars were trending down in the emergency department with fluids and an insulin drip. She will be admitted to the intensive care unit to continue treating DKA with hopes to fairly quickly transition back to her usual insulin dosing with sliding scale. She states she typically takes Tresiba 25 units daily with prandial insulin typically 8-10 units per meal plus sliding scale. Will also send a hemoglobin A1c to assess her baseline diabetes control. 2. Upper GI bleed Based on her history, she is certainly presents with concerns for an upper GI bleed. She was guaiac-positive in the emergency department. She does have a history of gastric ulcer, and this is certainly concerning for recurrence. Additional possibilities include a Rajni-Mcguire tear or gastritis. She did receive a bolus dose of pantoprazole in the emergency department. Will be continued on pantoprazole 40 mg IV b.i.d.. She will be placed on clear liquids for now, NPO after midnight. I have spoken with Dr. Rogelio Kamara. He has kindly agreed to coordinate an EGD in the morning. Although her hemoglobin is within normal limits, I suspect she was significantly volume depleted on arrival. Anticipate her hemoglobin will drop significantly with volume repletion. We will repeat a hemoglobin with her next lab draw for reassessment. She is presently hemodynamically stable. 3. Leukocytosis Suspect this is reactive rather than secondary to an acute infectious etiology. Chest x-ray showed no acute abnormalities. CTA of the abdomen pelvis did show a long segment in the colon which could be colitis versus not fully distended colon. Blood and urine cultures are presently pending. She did receive a dose of ceftriaxone in the emergency department. However, this has not been continued for now. 4. Relative hypokalemia On arrival, potassium was 4.8. It decreased to 3.7. Anticipate with intracellular shifts, she will become hypokalemic. Will plan to replete. We will monitor electrolytes closely. Code status Full Prophylaxis Chemical prophylaxis contraindicated in the setting of potential GI bleed Disposition Admit to ICU Time-Based Coding :: [TOTAL MINUTES] spent with patient and on the chart (including review of chart, obtaining history, exam, reviewing outside data, placing orders, documenting exam and treatment plan, and counseling patient) on [DATE]. Quality VTE Deep Vein Thrombosis/Pulmonary Embolism Present on Admission: No
[2025-08-28 19:41] LABS: Hematocrit 38.5 % (36-46); Hemoglobin 13.0 g/dL (12.0-16.0)
[2025-08-28 19:52] LABS: Blood Urea Nitrogen 17 mg/dL (7-17); Calcium 8.0 mg/dL (8.4-10.2); Carbon Dioxide 12 mmol/L (22-32); Chloride 115 mmol/L (98-107); Estimated Glomerular Filt Rate > 60 mL/min (>60); Glucose 239 mg/dL (70-99); HEMOLYSIS < 15 (0-50); Potassium 4.1 mmol/L (3.4-5.1); Sodium 142 mmol/L (137-145)
[2025-08-28] MEDS: INSULIN LISPRO 100 UNIT/ML 3ML VIAL SUBCUT (21:46)
[2025-08-28] MEDS: PANTOPRAZOLE 40 MG VIAL IV (22:12)
[2025-08-29] VITALS (47 sets, daily range): BP systolic 124–176; BP diastolic 62–102; PULSE 72–101; RESP 10–22; TEMP 36.8–37.1; O2SAT 97–100
[2025-08-29] MEDS: ONDANSETRON 4 MG/2 ML INJ IV ×2 (01:38→06:05)
[2025-08-29] MEDS: METOCLOPRAMIDE 10 MG/2 ML INJ IV ×2 (02:58→06:59)
[2025-08-29 05:14] LABS: Add Manual Diff / Slide Review NO; Hematocrit 40.7 % (36-46); Hemoglobin 13.5 g/dL (12.0-16.0); Lymphocytes Absolute Auto 2500 /uL (1100-4500); Mean Corpuscular HGB Conc 33.3 % (30-36); Mean Corpuscular Hemoglobin 29.0 PG (26-34); Mean Corpuscular Volume 87.3 fL (80-100); Platelet Count 197 X10^3/uL (150-400)
[2025-08-29 05:50] LABS: Blood Urea Nitrogen 16 mg/dL (7-17); Calcium 7.9 mg/dL (8.4-10.2); Carbon Dioxide 10 mmol/L (22-32); Chloride 114 mmol/L (98-107); Estimated Glomerular Filt Rate > 60 mL/min (>60); Glucose 344 mg/dL (70-99); HEMOLYSIS < 15 (0-50); Magnesium 1.9 mg/dL (1.6-2.3); Potassium 3.8 mmol/L (3.4-5.1); Sodium 142 mmol/L (137-145)
--- NOTE | 2025-08-29 06:42 | P.CONS_ITS ---
History of Present Illness Consult details Date Patient Seen: 08/29/25 Time Patient Seen: 06:42 Chief complaint: High Blood Sugar Reason for consult: EGD, possible PUD Requesting provider: Polly Allison Narrative: Surgery consult requested for 50yo F, h/o PUD, smoker, c/o coffee ground emesis, melena, request for EGD to evaluate for PUD. Diabetic, admitted with DKA. PPI therapy initiated. Hgb 15 to 13 but hemoconcentrated due to DKA. HR 95, SBP 160 this morning. Meds Home Medications and Allergies Home Medications ?Medication ?Instructions ?Recorded ?Confirmed ?Type insulin degludec 100 unit/mL 25 unit SUBCUT DAILY 08/1308/28/25 History subcutaneous solution (Tresiba U-100 Insulin) insulin lispro 100 unit/mL 1 sliding scale dose SUBCUT 08/28/25 08/28/25 History subcutaneous pen (Humalog KwikPen USEASDIRECTD (U-100) Insulin) Allergies Allergy/AdvReac Type Severity Reaction Status Date / Time Sulfa (Sulfonamide Allergy Unknown Verified 08/28/25 07:30 Antibiotics) morphine AdvReac Unknown Verified 08/28/25 07:30 Exam Vital Signs (past 8 hours): - 08/28/25 23:00 08/29/25 01:00 08/29/25 02:00 Temperature Pulse Rate 88 78 86 Respiratory Rate 10 L 13 10 L Blood Pressure 154/76 H 147/68 H 159/77 H Pulse Oximetry 97 98 99 08/29/25 03:00 08/29/25 03:06 08/29/25 04:00 Temperature 98.4 F Pulse Rate 88 87 Respiratory Rate 16 13 Blood Pressure 166/102 H 155/72 H Pulse Oximetry 98 99 08/29/25 04:00 08/29/25 05:00 08/29/25 06:00 Temperature 98.4 F Pulse Rate 94 H 87 95 H Respiratory Rate 11 L 10 L 12 Blood Pressure 152/78 H 145/68 H 160/83 H Pulse Oximetry 99 99 99 Oxygen Delivery Method Room Air Oxygen Flow Rate 0 Narrative Exam Narrative: Const General: healthy appearing, comfortable and no acute distress Orientation: alert and oriented x3 HENMT Ears: hearing grossly normal bilaterally Eyes Visual Bacon: normal visual bacon by confrontation Conjunctivae: conjunctivae normal Sclera: sclerae normal EOM: EOM intact bilaterally Resp Effort & Inspection: normal respiratory effort and able to speak in complete sentences Cardio Rate: regular rate GI Palpation: soft (NT) Extrem General: no pedal edema and no calf tenderness Objective Labs 08/29/25 04:16 08/29/25 04:16 Labs: Laboratory Results - last 24 hr 08/28/25 08/28/25 08/28/25 07:30 07:32 07:37 WBC 19.4 H RBC 5.40 H Hgb 15.6 Hct 47.6 H MCV 88.1 MCH 28.8 MCHC 32.7 RDW 13.9 Plt Count 250 Neut % (Auto) 92.3 H Lymph % (Auto) 5.8 L [place] % (Auto) 1.5 L Eos % (Auto) 0.0 L Baso % (Auto) 0.4 Neut # (Auto) 18413 H Lymph # (Auto) 1100 [place] # (Auto) 300 Eos # (Auto) 0 Baso # (Auto) 100 VBG pH 7.23 L VBG pCO2 17.9 L VBG pO2 56 H VBG HCO3 8 L VBG Total CO2 7 L VBG O2 Saturation 84 H VBG Base Excess -17.3 L Sodium 143 Potassium 4.8 Chloride 108 H Carbon Dioxide < 5 L* BUN 22 H Creatinine 0.85 Estimated GFR > 60 BUN/Creatinine Ratio 25.9 H Glucose 548 H* POC Whole Bld Glucose 491 H* Hemoglobin A1c 11.8 H Lactate 1.8 Calcium 9.2 Magnesium 1.9 Total Bilirubin 0.8 AST 26 ALT 20 Alkaline Phosphatase 106 Troponin I < 0.012 NT-Pro-B Natriuret Pep 195 H Total Protein 8.1 Albumin 4.8 Globulin 3.3 Albumin/Globulin Ratio 1.5 Lipase 60 Urine RBC Urine WBC Ur Squamous Epith Cells Urine Bacteria Ur Culture Indicated? Vol Urine Centrifuged Ketones 10.3 H Blood Type Antibody Screen 08/28/25 08/28/25 08/28/25 07:50 09:24 10:33 WBC RBC Hgb Hct MCV MCH MCHC RDW Plt Count Neut % (Auto) Lymph % (Auto) [place] % (Auto) Eos % (Auto) Baso % (Auto) Neut # (Auto) Lymph # (Auto) [place] # (Auto) Eos # (Auto) Baso # (Auto) VBG pH VBG pCO2 VBG pO2 VBG HCO3 VBG Total CO2 VBG O2 Saturation VBG Base Excess Sodium Potassium Chloride Carbon Dioxide BUN Creatinine Estimated GFR BUN/Creatinine Ratio Glucose POC Whole Bld Glucose 427 H 337 H Hemoglobin A1c Lactate Calcium Magnesium Total Bilirubin AST ALT Alkaline Phosphatase Troponin I NT-Pro-B Natriuret Pep Total Protein Albumin Globulin Albumin/Globulin Ratio Lipase Urine RBC Urine WBC Ur Squamous Epith Cells Urine Bacteria Ur Culture Indicated? Vol Urine Centrifuged Ketones Blood Type O Negative Antibody Screen Negative 08/28/25 08/28/25 08/28/25 11:00 11:30 11:31 WBC RBC Hgb Hct MCV MCH MCHC RDW Plt Count Neut % (Auto) Lymph % (Auto) [place] % (Auto) Eos % (Auto) Baso % (Auto) Neut # (Auto) Lymph # (Auto) [place] # (Auto) Eos # (Auto) Baso # (Auto) VBG pH VBG pCO2 VBG pO2 VBG HCO3 VBG Total CO2 VBG O2 Saturation VBG Base Excess Sodium 146 H Potassium 3.7 Chloride 116 H Carbon Dioxide 10 L BUN 20 H Creatinine 0.79 Estimated GFR > 60 BUN/Creatinine Ratio 25.3 H Glucose 316 H D POC Whole Bld Glucose 308 H 283 H Hemoglobin A1c Lactate Calcium 8.5 Magnesium Total Bilirubin AST ALT Alkaline Phosphatase Troponin I NT-Pro-B Natriuret Pep Total Protein Albumin Globulin Albumin/Globulin Ratio Lipase Urine RBC 5-10/hpf H Urine WBC 1-5/hpf Ur Squamous Epith Cells 1-5 /hpf Urine Bacteria Occasional (0-1) Ur Culture Indicated? Cult not indicated Vol Urine Centrifuged 10ml (spun) Ketones Blood Type Antibody Screen 08/28/25 08/28/25 08/28/25 12:15 12:26 13:30 WBC RBC Hgb Hct MCV MCH MCHC RDW Plt Count Neut % (Auto) Lymph % (Auto) [place] % (Auto) Eos % (Auto) Baso % (Auto) Neut # (Auto) Lymph # (Auto) [place] # (Auto) Eos # (Auto) Baso # (Auto) VBG pH VBG pCO2 VBG pO2 VBG HCO3 VBG Total CO2 VBG O2 Saturation VBG Base Excess Sodium 146 H Potassium 4.1 Chloride 116 H Carbon Dioxide 12 L BUN 20 H Creatinine 0.76 Estimated GFR > 60 BUN/Creatinine Ratio 26.3 H Glucose 250 H POC Whole Bld Glucose 238 H 244 H Hemoglobin A1c Lactate Calcium 8.4 Magnesium Total Bilirubin AST ALT Alkaline Phosphatase Troponin I NT-Pro-B Natriuret Pep Total Protein Albumin Globulin Albumin/Globulin Ratio Lipase Urine RBC Urine WBC Ur Squamous Epith Cells Urine Bacteria Ur Culture Indicated? Vol Urine Centrifuged Ketones Blood Type Antibody Screen 08/28/25 08/28/25 08/28/25 14:29 15:29 15:41 WBC RBC Hgb Hct MCV MCH MCHC RDW Plt Count Neut % (Auto) Lymph % (Auto) [place] % (Auto) Eos % (Auto) Baso % (Auto) Neut # (Auto) Lymph # (Auto) [place] # (Auto) Eos # (Auto) Baso # (Auto) VBG pH VBG pCO2 VBG pO2 VBG HCO3 VBG Total CO2 VBG O2 Saturation VBG Base Excess Sodium 145 Potassium 3.8 Chloride 117 H Carbon Dioxide 14 L BUN 19 H Creatinine 0.67 Estimated GFR > 60 BUN/Creatinine Ratio 28.4 H Glucose 202 H POC Whole Bld Glucose 259 H 182 H Hemoglobin A1c Lactate Calcium 8.5 Magnesium Total Bilirubin AST ALT Alkaline Phosphatase Troponin I NT-Pro-B Natriuret Pep Total Protein Albumin Globulin Albumin/Globulin Ratio Lipase Urine RBC Urine WBC Ur Squamous Epith Cells Urine Bacteria Ur Culture Indicated? Vol Urine Centrifuged Ketones Blood Type Antibody Screen 08/28/25 08/28/25 08/28/25 16:37 17:37 19:35 WBC RBC Hgb 13.0 Hct 38.5 MCV MCH MCHC RDW Plt Count Neut % (Auto) Lymph % (Auto) [place] % (Auto) Eos % (Auto) Baso % (Auto) Neut # (Auto) Lymph # (Auto) [place] # (Auto) Eos # (Auto) Baso # (Auto) VBG pH VBG pCO2 VBG pO2 VBG HCO3 VBG Total CO2 VBG O2 Saturation VBG Base Excess Sodium 142 Potassium 4.1 Chloride 115 H Carbon Dioxide 12 L BUN 17 Creatinine 0.60 Estimated GFR > 60 BUN/Creatinine Ratio 28.3 H Glucose 239 H POC Whole Bld Glucose 168 H 146 H Hemoglobin A1c Lactate Calcium 8.0 L Magnesium Total Bilirubin AST ALT Alkaline Phosphatase Troponin I NT-Pro-B Natriuret Pep Total Protein Albumin Globulin Albumin/Globulin Ratio Lipase Urine RBC Urine WBC Ur Squamous Epith Cells Urine Bacteria Ur Culture Indicated? Vol Urine Centrifuged Ketones Blood Type Antibody Screen 08/28/25 08/28/25 08/29/25 21:15 21:19 00:02 WBC RBC Hgb Hct MCV MCH MCHC RDW Plt Count Neut % (Auto) Lymph % (Auto) [place] % (Auto) Eos % (Auto) Baso % (Auto) Neut # (Auto) Lymph # (Auto) [place] # (Auto) Eos # (Auto) Baso # (Auto) VBG pH VBG pCO2 VBG pO2 VBG HCO3 VBG Total CO2 VBG O2 Saturation VBG Base Excess Sodium Potassium Chloride Carbon Dioxide BUN Creatinine Estimated GFR BUN/Creatinine Ratio Glucose POC Whole Bld Glucose 304 H D 296 H 291 H Hemoglobin A1c Lactate Calcium Magnesium Total Bilirubin AST ALT Alkaline Phosphatase Troponin I NT-Pro-B Natriuret Pep Total Protein Albumin Globulin Albumin/Globulin Ratio Lipase Urine RBC Urine WBC Ur Squamous Epith Cells Urine Bacteria Ur Culture Indicated? Vol Urine Centrifuged Ketones Blood Type Antibody Screen 08/29/25 04:16 WBC 15.9 H RBC 4.66 Hgb 13.5 Hct 40.7 MCV 87.3 MCH 29.0 MCHC 33.3 RDW 14.2 Plt Count 197 Neut % (Auto) 79.1 H Lymph % (Auto) 15.8 L [place] % (Auto) 4.6 Eos % (Auto) 0.0 L Baso % (Auto) 0.5 Neut # (Auto) 01294 H Lymph # (Auto) 2500 [place] # (Auto) 700 Eos # (Auto) 0 Baso # (Auto) 100 VBG pH VBG pCO2 VBG pO2 VBG HCO3 VBG Total CO2 VBG O2 Saturation VBG Base Excess Sodium 142 Potassium 3.8 Chloride 114 H Carbon Dioxide 10 L BUN 16 Creatinine 0.58 Estimated GFR > 60 BUN/Creatinine Ratio 27.6 H Glucose 344 H D POC Whole Bld Glucose Hemoglobin A1c Lactate Calcium 7.9 L Magnesium 1.9 Total Bilirubin AST ALT Alkaline Phosphatase Troponin I NT-Pro-B Natriuret Pep Total Protein Albumin Globulin Albumin/Globulin Ratio Lipase Urine RBC Urine WBC Ur Squamous Epith Cells Urine Bacteria Ur Culture Indicated? Vol Urine Centrifuged Ketones Blood Type Antibody Screen [facility] Social History household members: family and friend(s) Tobacco & Substance Use Smoking Status: Current some day smoker alcohol intake: never Assessment & Plan Assessment and plan (1) Epigastric pain: Status: Acute (2) Nausea and vomiting: Qualifiers: Vomiting type: unspecified Qualified Code(s): R11.2 - Nausea with vomiting, unspecified Status: Acute (3) Hematemesis with nausea: Status: Acute (4) Melena: Status: Acute Plan Plan EGD/biopsy to evaluate for PUD, esophagitis, gastritis, H pylori. The risks, benefits and options regarding the procedure were explained to the patient in detail. Risk discussion included but not limited to: bleeding, perforation, aspiration. The patient was encouraged to ask questions and they were answered to their satisfaction. The patient understands and is agreeable to proceed. Time-Based Coding :: [TOTAL MINUTES] spent with patient and on the chart (including review of chart, obtaining history, exam, reviewing outside data, placing orders, documenting exam and treatment plan, and counseling patient) on [DATE]. PROFEE Charge Codes Inpatient or Observation consultation: [id number]
[2025-08-29] MEDS: SODIUM CHLORIDE 0.9% 1,000 ML 100 ML IV (07:05)
[2025-08-29] MEDS: POTASSIUM CHLORIDE 20 MEQ in SODIUM CHLORIDE 0.45% 1,000 ML 125 MEQ IV (08:27)
[2025-08-29] MEDS: PANTOPRAZOLE 40 MG VIAL IV ×2 (08:27→20:09)
[2025-08-29] MEDS: INSULIN DRIP PREMIX 100 UNIT/100 ML PLAST..BAG 7.4 UNIT IV (08:30)
[2025-08-29 09:00] LABS: Glucose 417 mg/dL (70-99)
[2025-08-29 09:10] LABS: Blood Urea Nitrogen 15 mg/dL (7-17); Calcium 8.2 mg/dL (8.4-10.2); Chloride 117 mmol/L (98-107); Estimated Glomerular Filt Rate > 60 mL/min (>60); Glucose 427 mg/dL (70-99); HEMOLYSIS 53 (0-50); Potassium 4.4 mmol/L (3.4-5.1); Sodium 144 mmol/L (137-145)
[2025-08-29 09:12] LABS: Carbon Dioxide < 5 mmol/L (22-32)
[2025-08-29 09:42] LABS: Ketones (Beta-Hydroxybutyrate) 8.34 mmol/L (<0.27)
[2025-08-29] MEDS: SODIUM CHLORIDE 0.9% 1,000 ML 999 ML IV (10:28)
--- NOTE | 2025-08-29 12:51 | DIET.CONS ---
Dietary Consultation Note Admission Date: 08/28/2025 12:40 Assessment: 50 y F admitted for DKA. Dietitian consulted for once DKA resolves. Per rounds this morning, pt to get EGD and was put back on insulin drip this morning. Will f/u post EGD for DM educ. Ht: 170.18 cm Wt: 74 kg BMI: 25.5 Last BM: 08/28/25 (08/28/25 14:21) MNA: 12 Srinivas Score: 19 Diet: 08/29/25 00:01 NPO Diet Diet Modifications: NPO Type: NPO after Midnight 08/29/25 Lunch Carbohydrate Consistent Diet Diet Modifications: Carbohydrate level: Medium (3 CHO) Reflex DM orders: No Food Texture: Level 7 - Regular Liquid Consistency: Level 0 - Thin Labs: RBC 4.66 X10^6/uL (4.0-5.2) 08/29/25 04:16 Hgb 13.5 g/dL (12.0-16.0) 08/29/25 04:16 Hct 40.7 % (36-46) 08/29/25 04:16 Creatinine 0.62 mg/dL (0.52-1.04) 08/29/25 08:22 Hemoglobin A1c 11.8 % (4.0-6.0) H 08/28/25 07:30 Lactate 1.8 mmol/L (0.7-2.1) 08/28/25 07:30 NT-Pro-B Natriuret Pep 195 pg/mL (<125) H 08/28/25 07:30 Electronically Signed by: Mirta Grace 08/29/25 12:51 Clinical Dietitian [address] [address]
[2025-08-29 13:03] LABS: Blood Urea Nitrogen 15 mg/dL (7-17); Calcium 7.8 mg/dL (8.4-10.2); Carbon Dioxide 12 mmol/L (22-32); Chloride 116 mmol/L (98-107); Estimated Glomerular Filt Rate > 60 mL/min (>60); Glucose 223 mg/dL (70-99); HEMOLYSIS 35 (0-50); Potassium 3.7 mmol/L (3.4-5.1); Sodium 142 mmol/L (137-145)
[2025-08-29] MEDS: DEXTROSE 5%-0.45% NS 1,000 ML 150 ML IV (13:25)
[2025-08-29] MEDS: DEXTROSE 5%-0.45NS W/KCL 20MEQ 1,000 ML 150 MEQ IV (14:24)
--- NOTE | 2025-08-29 15:42 | CM.DANOTE ---
Patient is a 50 yo female who was admitted INPT Status on 08/28/25 for DKA/Upper GI Bleed. Pt has [facility] for insurance and her PCP is not listed. EMR was reviewed. Per MD, pt with type 1 DM and admitted after intractable n/v/d and was in DKA and guiac in stool. Per Surgeon, once blood sugars stable then plan of EGD to determine source of bleed and if any active bleed. Sw met bedside with pt and oldest Dtr and explained role and they confirm they lives at home in [place] with pt, 3 Dtrs, and an elderly friend. Pt is independent at baseline with ADLs and states she does not use DME for ambulation and denies any hx of HH or SNF. Pt is not working at this time, states she is on disability. Pt states two of her Dtrs work as caregivers and can assist if needed but pt anticipates once she is feeling better she should be back to being independent. Dtr confirms she will provide transport at d/c and they do not anticipate any needs at d/c at this time. Plan: SW to follow for scope results and confirm safe plan of home with Dtrs and any further identified barriers to discharge. 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 [facility]/Assigned informally Dtr Sophia Designee Name Advance Directives? No Advance Directives No on File History Provided By Patient,Family Member,Medical Record Has Patient been No admitted in last 30 days? Prior Living House Arrangements Household Members family,friend(s) Comment Lives with three Dtrs and elderly friend Type of Relies on Others transporation used prior to admit Independent with ADL Yes 's Is patient alert and Yes oriented? Needs Assistance Home Chores / Shopping With Caregiver for No Another Barriers to No Discharge Discharge Plan Home Referrals Initiated None needed Whiteboard Updated Yes in Patient Room with name and ext. 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
[2025-08-29 16:36] LABS: Blood Urea Nitrogen 13 mg/dL (7-17); Calcium 7.6 mg/dL (8.4-10.2); Carbon Dioxide 14 mmol/L (22-32); Chloride 114 mmol/L (98-107); Estimated Glomerular Filt Rate > 60 mL/min (>60); Glucose 178 mg/dL (70-99); HEMOLYSIS < 15 (0-50); Potassium 3.5 mmol/L (3.4-5.1); Sodium 140 mmol/L (137-145)
--- NOTE | 2025-08-29 16:47 | PC.NURSE ---
Started pt back on insulin drip for increased blood sugar. Diet started, little appetite, prn nausea meds utilized and IV Dilaudid for pain control. Visitors in and out throughout shift.
[2025-08-29] MEDS: ACETAMINOPHEN 325 MG TABLET 650 MG PO (18:35)
[2025-08-29 19:31] LABS: Acinetobacter calcoa-baumannii Not Detected (Not Detect); Bacteroides fragilis Not Detected (Not Detect); Candida auris Not Detected (Not Detect); Candida glabrata Not Detected (Not Detect); Cryptococcus neoformans/gatti Not Detected (Not Detect); Enterobacterales Not Detected (Not Detect); Enterococcus faecalis Not Detected (Not Detect); Enterococcus faecium Not Detected (Not Detect); Klebsiella aerogenes Not Detected (Not Detect); Proteus species Not Detected (Not Detect); Serratia marcescens Not Detected (Not Detect); Staphylococcus epidermidis Not Detected (Not Detect); Staphylococcus lugdunensis Not Detected (Not Detect); Staphylococcus species Detected (Not Detect); Stenotrophomonas maltophilia Not Detected (Not Detect); Streptococcus agalactiae (Gr B Not Detected (Not Detect); Streptococcus pneumonia Not Detected (Not Detect); Streptococcus pyogenes (Gr A) Not Detected (Not Detect); Streptococcus species Not Detected (Not Detect)
[2025-08-29] MEDS: POTASSIUM CHLORIDE IN WATER 10 MEQ/100 ML PIGGYBACK 100 MEQ IV ×2 (20:07→21:05)
[2025-08-29] MEDS: INSULIN GLARGINE 100 UNIT/ML 3ML PEN 50 UNIT SUBCUT (20:08)
[2025-08-30] VITALS (35 sets, daily range): BP systolic 124–182; BP diastolic 64–84; PULSE 67–100; RESP 8–26; TEMP 35.9–37.4; O2SAT 96–100
--- NOTE | 2025-08-30 | PATH_ITS ---
[facility] Accession Number: [id number] No. of containers..02 Tissue . 01 Material submitted: . PART A: stomach - STOMACH, ANTRAL PART B: esophagus - ESOPHAGUS . 01 Clinical history: . B) R/O FUNGAL ESOPHAGITIS . 01 Diagnosis: Part A: STOMACH, ANTRAL: Gastric mucosa with mild chronic inflammation and focal intestinal metaplasia. No Helicobacter organisms identified. No dysplasia or malignancy identified. . Part B: ESOPHAGUS: Squamous and squamocolumnar junctional mucosa with ulcer. No goblet cell metaplasia, dysplasia, malignancy, or infectious organisms identified. See comment. . Specimen Comments: While no fungal organisms are seen in this sample, the possibility is not entirely excluded and clinical correlation is recommended. Reflux and pill esophagitis also enter the histologic differential. [facility] 09/12/20251610 Local . 01 Electronically signed: . Vimal Brar MD, Pathologist NPI- [id number] . 01 Gross description: . . . . Received are two formalin-filled containers both labeled with the patient's name. . A. In a container labeled antral biopsy. The specimen consists of two fragments of simmons, soft tissue which range in size from 0.1 x 0.1 x 0.1 cm to 0.2 x 0.2 x 0.2 cm. All fragments are totally submitted in cassette A1. . B. In a container labeled esophageal. The specimen consists of four fragments of simmons, soft tissue which range in size from less than 0.1 cm to 0.3 x 0.2 x 0.2 cm. All fragments are totally submitted in cassette B1. (DC:[id number]) /DILLAN 09/12/20251610 Local . 01 Microscopic: . Part A: ANTRAL: An immunohistochemical stain was performed to evaluate for Helicobacter organisms and is negative. The control stains appropriately. * This test was developed and the performance characteristics were validated by [facility]. It has not been cleared or approved by the Food and Drug Administration. . Part B: ESOPHAGUS: An ABPAS stain was performed to evaluate for fungal organisms and is negative. The control stains appropriately. . 01 Pathologist provided ICD-10: K22.10, K29.50, K31.A0 . 01 CPT . 577197, 444944, 779991, [id number] Specimen Comment: A courtesy copy of this report has been sent to [facility] Performed at: [address] [address], [place], [place] [id number] MD Vimal Brar MD Phone: [phone]
[2025-08-30] MEDS: ONDANSETRON 4 MG/2 ML INJ IV ×2 (02:33→09:27)
[2025-08-30] MEDS: METOCLOPRAMIDE 10 MG/2 ML INJ IV ×4 (04:14→20:18)
[2025-08-30 05:46] LABS: Add Manual Diff / Slide Review NO; Hematocrit 35.2 % (36-46); Hemoglobin 12.0 g/dL (12.0-16.0); Lymphocytes Absolute Auto 1800 /uL (1100-4500); Mean Corpuscular HGB Conc 34.0 % (30-36); Mean Corpuscular Hemoglobin 29.3 PG (26-34); Mean Corpuscular Volume 86.1 fL (80-100); Platelet Count 154 X10^3/uL (150-400)
[2025-08-30 05:57] LABS: Blood Urea Nitrogen 10 mg/dL (7-17); Calcium 7.4 mg/dL (8.4-10.2); Carbon Dioxide 18 mmol/L (22-32); Chloride 112 mmol/L (98-107); Estimated Glomerular Filt Rate > 60 mL/min (>60); Glucose 257 mg/dL (70-99); HEMOLYSIS < 15 (0-50); Magnesium 1.8 mg/dL (1.6-2.3); Potassium 3.8 mmol/L (3.4-5.1); Sodium 136 mmol/L (137-145)
[2025-08-30] MEDS: DEXTROSE 5%-0.45NS W/KCL 20MEQ 1,000 ML 100 MEQ IV (06:03)
--- NOTE | 2025-08-30 06:12 | P.PN_ITS ---
Subjective Subjective Date Patient Seen: 08/30/25 Time Patient Seen: 06:12 Interval history: Patient has been NPO since [place] EGD cancelled yesterday due to PO status Stable overnight, hgb 12 this morning Exam Vital Signs (past 8 hours): - 08/30/25 00:00 08/30/25 03:47 08/30/25 04:00 Pulse Rate 92 H 78 Respiratory Rate 16 16 Blood Pressure 127/64 182/84 H Pulse Oximetry 99 98 Oxygen Delivery Method Room Air Oxygen Flow Rate 0 0 Oxygen Delivery Method Room Air Oxygen Flow Rate 0 GI Other: ABD: soft, non-peritoneal exam Objective Labs 08/30/25 04:12 08/30/25 04:12 Labs: Laboratory Results - last 24 hr 08/28/25 08/29/25 08/29/25 08:38 07:00 08:22 WBC RBC Hgb Hct MCV MCH MCHC RDW Plt Count Neut % (Auto) Lymph % (Auto) [place] % (Auto) Eos % (Auto) Baso % (Auto) Neut # (Auto) Lymph # (Auto) [place] # (Auto) Eos # (Auto) Baso # (Auto) Sodium 144 Potassium 4.4 Chloride 117 H Carbon Dioxide < 5 L* BUN 15 Creatinine 0.62 Estimated GFR > 60 BUN/Creatinine Ratio 24.2 H Glucose 417 H POC Whole Bld Glucose 381 H Calcium Magnesium Ketones A.calcoaceticus-baumannii cmplx PCR Not detected Bacteroides fragilis Not detected Jennifer albicans (PCR) Not detected Jennifer auris (PCR) Not detected C. glabrata (PCR) Not detected C. krusei (PCR) Not detected C. parapsilosis (PCR) Not detected C. tropicalis (PCR) Not detected C. neoform/gattii (PCR) Not detected Enterobacterales (PCR) Not detected E. cloacae complex PCR Not detected Enterococc faecalis PCR Not detected Enterococc faecium PCR Not detected E. coli (PCR) Not detected H. influenzae (PCR) Not detected Klebsiella aerogenes (PCR) Not detected Klebsiella oxytoca PCR Not detected Klebsiella pneumoniae Not detected List. monocytogenes PCR Not detected N. meningitidis (PCR) Not detected Proteus species (PCR) Not detected Salmonella spp. (PCR) Not detected Serratia marcescens PCR Not detected Staphylococcus sp PCR Detected Staph aureus (PCR) Not detected mecA/C & MREJ Resist Gene Not applicable mecA/C-Methicil Resis Gene Not applicable mcr-1 Colistin Res Gene PCR Not applicable Staph epidermidis (PCR) Not detected Staph lugdunensis PCR Not detected S. maltophilia (PCR) Not detected Streptococcus sp PCR Not detected Group A Strep (PCR) Not detected Strep agalactiae (PCR) Not detected Strep pneumoniae (PCR) Not detected P. aeruginosa (PCR) Not detected Marisol/B-Vanco Res Genes Not applicable blaIMP Car res Gene PCR Not applicable KPC-Carbap Res Gene PCR Not applicable blaNDM Car Res Gene PCR Not applicable OXA-48 Carbapenem Resis Gene (PCR) Not applicable blaVIM Car Res Gene PCR Not applicable CTX-M Gene Resistance (PCR) Not applicable 08/29/25 08/29/25 08/29/25 08:22 09:31 10:26 WBC RBC Hgb Hct MCV MCH MCHC RDW Plt Count Neut % (Auto) Lymph % (Auto) [place] % (Auto) Eos % (Auto) Baso % (Auto) Neut # (Auto) Lymph # (Auto) [place] # (Auto) Eos # (Auto) Baso # (Auto) Sodium Potassium Chloride Carbon Dioxide BUN Creatinine Estimated GFR BUN/Creatinine Ratio Glucose 427 H POC Whole Bld Glucose 430 H 378 H 305 H Calcium 8.2 L Magnesium Ketones 8.34 H A.calcoaceticus-baumannii cmplx PCR Bacteroides fragilis Jennifer albicans (PCR) Jennifer auris (PCR) C. glabrata (PCR) C. krusei (PCR) C. parapsilosis (PCR) C. tropicalis (PCR) C. neoform/gattii (PCR) Enterobacterales (PCR) E. cloacae complex PCR Enterococc faecalis PCR Enterococc faecium PCR E. coli (PCR) H. influenzae (PCR) Klebsiella aerogenes (PCR) Klebsiella oxytoca PCR Klebsiella pneumoniae List. monocytogenes PCR N. meningitidis (PCR) Proteus species (PCR) Salmonella spp. (PCR) Serratia marcescens PCR Staphylococcus sp PCR Staph aureus (PCR) mecA/C & MREJ Resist Gene mecA/C-Methicil Resis Gene mcr-1 Colistin Res Gene PCR Staph epidermidis (PCR) Staph lugdunensis PCR S. maltophilia (PCR) Streptococcus sp PCR Group A Strep (PCR) Strep agalactiae (PCR) Strep pneumoniae (PCR) P. aeruginosa (PCR) Marisol/B-Vanco Res Genes blaIMP Car res Gene PCR KPC-Carbap Res Gene PCR blaNDM Car Res Gene PCR OXA-48 Carbapenem Resis Gene (PCR) blaVIM Car Res Gene PCR CTX-M Gene Resistance (PCR) 08/29/25 08/29/25 08/29/25 11:33 12:15 12:16 WBC RBC Hgb Hct MCV MCH MCHC RDW Plt Count Neut % (Auto) Lymph % (Auto) [place] % (Auto) Eos % (Auto) Baso % (Auto) Neut # (Auto) Lymph # (Auto) [place] # (Auto) Eos # (Auto) Baso # (Auto) Sodium 142 Potassium 3.7 Chloride 116 H Carbon Dioxide 12 L BUN 15 Creatinine 0.59 Estimated GFR > 60 BUN/Creatinine Ratio 25.4 H Glucose 223 H D POC Whole Bld Glucose 251 H 217 H Calcium 7.8 L Magnesium Ketones A.calcoaceticus-baumannii cmplx PCR Bacteroides fragilis Jennifer albicans (PCR) Jennifer auris (PCR) C. glabrata (PCR) C. krusei (PCR) C. parapsilosis (PCR) C. tropicalis (PCR) C. neoform/gattii (PCR) Enterobacterales (PCR) E. cloacae complex PCR Enterococc faecalis PCR Enterococc faecium PCR E. coli (PCR) H. influenzae (PCR) Klebsiella aerogenes (PCR) Klebsiella oxytoca PCR Klebsiella pneumoniae List. monocytogenes PCR N. meningitidis (PCR) Proteus species (PCR) Salmonella spp. (PCR) Serratia marcescens PCR Staphylococcus sp PCR Staph aureus (PCR) mecA/C & MREJ Resist Gene mecA/C-Methicil Resis Gene mcr-1 Colistin Res Gene PCR Staph epidermidis (PCR) Staph lugdunensis PCR S. maltophilia (PCR) Streptococcus sp PCR Group A Strep (PCR) Strep agalactiae (PCR) Strep pneumoniae (PCR) P. aeruginosa (PCR) Marisol/B-Vanco Res Genes blaIMP Car res Gene PCR KPC-Carbap Res Gene PCR blaNDM Car Res Gene PCR OXA-48 Carbapenem Resis Gene (PCR) blaVIM Car Res Gene PCR CTX-M Gene Resistance (PCR) 08/29/25 08/29/25 08/29/25 13:23 14:32 15:32 WBC RBC Hgb Hct MCV MCH MCHC RDW Plt Count Neut % (Auto) Lymph % (Auto) [place] % (Auto) Eos % (Auto) Baso % (Auto) Neut # (Auto) Lymph # (Auto) [place] # (Auto) Eos # (Auto) Baso # (Auto) Sodium Potassium Chloride Carbon Dioxide BUN Creatinine Estimated GFR BUN/Creatinine Ratio Glucose POC Whole Bld Glucose 163 H 169 H 153 H Calcium Magnesium Ketones A.calcoaceticus-baumannii cmplx PCR Bacteroides fragilis Jennifer albicans (PCR) Jennifer auris (PCR) C. glabrata (PCR) C. krusei (PCR) C. parapsilosis (PCR) C. tropicalis (PCR) C. neoform/gattii (PCR) Enterobacterales (PCR) E. cloacae complex PCR Enterococc faecalis PCR Enterococc faecium PCR E. coli (PCR) H. influenzae (PCR) Klebsiella aerogenes (PCR) Klebsiella oxytoca PCR Klebsiella pneumoniae List. monocytogenes PCR N. meningitidis (PCR) Proteus species (PCR) Salmonella spp. (PCR) Serratia marcescens PCR Staphylococcus sp PCR Staph aureus (PCR) mecA/C & MREJ Resist Gene mecA/C-Methicil Resis Gene mcr-1 Colistin Res Gene PCR Staph epidermidis (PCR) Staph lugdunensis PCR S. maltophilia (PCR) Streptococcus sp PCR Group A Strep (PCR) Strep agalactiae (PCR) Strep pneumoniae (PCR) P. aeruginosa (PCR) Marisol/B-Vanco Res Genes blaIMP Car res Gene PCR KPC-Carbap Res Gene PCR blaNDM Car Res Gene PCR OXA-48 Carbapenem Resis Gene (PCR) blaVIM Car Res Gene PCR CTX-M Gene Resistance (PCR) 08/29/25 08/29/25 08/29/25 16:10 16:19 17:30 WBC RBC Hgb Hct MCV MCH MCHC RDW Plt Count Neut % (Auto) Lymph % (Auto) [place] % (Auto) Eos % (Auto) Baso % (Auto) Neut # (Auto) Lymph # (Auto) [place] # (Auto) Eos # (Auto) Baso # (Auto) Sodium 140 Potassium 3.5 Chloride 114 H Carbon Dioxide 14 L BUN 13 Creatinine 0.53 Estimated GFR > 60 BUN/Creatinine Ratio 24.5 H Glucose 178 H POC Whole Bld Glucose 197 H 191 H Calcium 7.6 L Magnesium Ketones A.calcoaceticus-baumannii cmplx PCR Bacteroides fragilis Jennifer albicans (PCR) Jennifer auris (PCR) C. glabrata (PCR) C. krusei (PCR) C. parapsilosis (PCR) C. tropicalis (PCR) C. neoform/gattii (PCR) Enterobacterales (PCR) E. cloacae complex PCR Enterococc faecalis PCR Enterococc faecium PCR E. coli (PCR) H. influenzae (PCR) Klebsiella aerogenes (PCR) Klebsiella oxytoca PCR Klebsiella pneumoniae List. monocytogenes PCR N. meningitidis (PCR) Proteus species (PCR) Salmonella spp. (PCR) Serratia marcescens PCR Staphylococcus sp PCR Staph aureus (PCR) mecA/C & MREJ Resist Gene mecA/C-Methicil Resis Gene mcr-1 Colistin Res Gene PCR Staph epidermidis (PCR) Staph lugdunensis PCR S. maltophilia (PCR) Streptococcus sp PCR Group A Strep (PCR) Strep agalactiae (PCR) Strep pneumoniae (PCR) P. aeruginosa (PCR) Marisol/B-Vanco Res Genes blaIMP Car res Gene PCR KPC-Carbap Res Gene PCR blaNDM Car Res Gene PCR OXA-48 Carbapenem Resis Gene (PCR) blaVIM Car Res Gene PCR CTX-M Gene Resistance (PCR) 08/29/25 08/29/25 08/29/25 18:29 20:06 22:17 WBC RBC Hgb Hct MCV MCH MCHC RDW Plt Count Neut % (Auto) Lymph % (Auto) [place] % (Auto) Eos % (Auto) Baso % (Auto) Neut # (Auto) Lymph # (Auto) [place] # (Auto) Eos # (Auto) Baso # (Auto) Sodium Potassium Chloride Carbon Dioxide BUN Creatinine Estimated GFR BUN/Creatinine Ratio Glucose POC Whole Bld Glucose 197 H 186 H 144 H Calcium Magnesium Ketones A.calcoaceticus-baumannii cmplx PCR Bacteroides fragilis Jennifer albicans (PCR) Jennifer auris (PCR) C. glabrata (PCR) C. krusei (PCR) C. parapsilosis (PCR) C. tropicalis (PCR) C. neoform/gattii (PCR) Enterobacterales (PCR) E. cloacae complex PCR Enterococc faecalis PCR Enterococc faecium PCR E. coli (PCR) H. influenzae (PCR) Klebsiella aerogenes (PCR) Klebsiella oxytoca PCR Klebsiella pneumoniae List. monocytogenes PCR N. meningitidis (PCR) Proteus species (PCR) Salmonella spp. (PCR) Serratia marcescens PCR Staphylococcus sp PCR Staph aureus (PCR) mecA/C & MREJ Resist Gene mecA/C-Methicil Resis Gene mcr-1 Colistin Res Gene PCR Staph epidermidis (PCR) Staph lugdunensis PCR S. maltophilia (PCR) Streptococcus sp PCR Group A Strep (PCR) Strep agalactiae (PCR) Strep pneumoniae (PCR) P. aeruginosa (PCR) Marisol/B-Vanco Res Genes blaIMP Car res Gene PCR KPC-Carbap Res Gene PCR blaNDM Car Res Gene PCR OXA-48 Carbapenem Resis Gene (PCR) blaVIM Car Res Gene PCR CTX-M Gene Resistance (PCR) 08/30/25 08/30/25 02:37 04:12 WBC 7.7 D RBC 4.09 Hgb 12.0 Hct 35.2 L MCV 86.1 MCH 29.3 MCHC 34.0 RDW 14.2 Plt Count 154 Neut % (Auto) 69.6 Lymph % (Auto) 23.2 L [place] % (Auto) 3.7 Eos % (Auto) 0.8 L Baso % (Auto) 2.7 H Neut # (Auto) 5400 Lymph # (Auto) 1800 [place] # (Auto) 300 Eos # (Auto) 100 Baso # (Auto) 200 H Sodium 136 L Potassium 3.8 Chloride 112 H Carbon Dioxide 18 L BUN 10 Creatinine 0.47 L Estimated GFR > 60 BUN/Creatinine Ratio 21.3 Glucose 257 H POC Whole Bld Glucose 237 H Calcium 7.4 L Magnesium 1.8 Ketones A.calcoaceticus-baumannii cmplx PCR Bacteroides fragilis Jennifer albicans (PCR) Jennifer auris (PCR) C. glabrata (PCR) C. krusei (PCR) C. parapsilosis (PCR) C. tropicalis (PCR) C. neoform/gattii (PCR) Enterobacterales (PCR) E. cloacae complex PCR Enterococc faecalis PCR Enterococc faecium PCR E. coli (PCR) H. influenzae (PCR) Klebsiella aerogenes (PCR) Klebsiella oxytoca PCR Klebsiella pneumoniae List. monocytogenes PCR N. meningitidis (PCR) Proteus species (PCR) Salmonella spp. (PCR) Serratia marcescens PCR Staphylococcus sp PCR Staph aureus (PCR) mecA/C & MREJ Resist Gene mecA/C-Methicil Resis Gene mcr-1 Colistin Res Gene PCR Staph epidermidis (PCR) Staph lugdunensis PCR S. maltophilia (PCR) Streptococcus sp PCR Group A Strep (PCR) Strep agalactiae (PCR) Strep pneumoniae (PCR) P. aeruginosa (PCR) Marisol/B-Vanco Res Genes blaIMP Car res Gene PCR KPC-Carbap Res Gene PCR blaNDM Car Res Gene PCR OXA-48 Carbapenem Resis Gene (PCR) blaVIM Car Res Gene PCR CTX-M Gene Resistance (PCR) PFSH Social History household members: family and friend(s) Smoking Status: Current some day smoker alcohol intake: never Assessment & Plan Assessment and plan (1) Melena: Status: Acute (2) Hematemesis with nausea: Status: Acute (3) Nausea and vomiting: Qualifiers: Vomiting type: unspecified Qualified Code(s): R11.2 - Nausea with vomiting, unspecified Status: Acute (4) Epigastric pain: Status: Acute Plan EGD, possible biopsy today. Time-Based Coding :: [TOTAL MINUTES] spent with patient and on the chart (including review of chart, obtaining history, exam, reviewing outside data, placing orders, documenting exam and treatment plan, and counseling patient) on [DATE]. Quality VTE Deep Vein Thrombosis/Pulmonary Embolism Present on Admission: No IH PROFEE Principal Network Engineer Document charge(s): Yes Charge Codes Subsequent inpatient/observation care: [id number]
--- NOTE | 2025-08-30 06:57 | PC.NURSE ---
night filler RN note pt A&Ox4, c/o mild abd pain and nausea overnight, prn meds with effect, up independently to BR, VSS, afebrile, SR 70s, pm lantus given and insulin gtt stopped per orders, CBGs in 140-180s range, K+ replaced as ordered, NPO at midnight in case of EGD in am, restarted IV fluids when NPO per MD, labs as ordered, call lara within reach, care ongoing
[2025-08-30] MEDS: PANTOPRAZOLE 40 MG VIAL IV ×2 (09:26→20:19)
[2025-08-30] MEDS: INSULIN LISPRO 100 UNIT/ML 3ML VIAL 8 UNIT SUBCUT ×2 (09:28→12:45)
[2025-08-30] MEDS: INSULIN LISPRO 100 UNIT/ML 3ML VIAL SUBCUT ×3 (09:29→18:00)
[2025-08-30] MEDS: INSULIN GLARGINE 100 UNIT/ML 3ML PEN 40 UNIT SUBCUT (09:52)
[2025-08-30] MEDS: LACTATED RINGERS 1,000 ML 42 ML IV (10:12)
--- NOTE | 2025-08-30 10:19 | PM.OP.EGD ---
Operative Date/Time/Diagnoses Date of procedure: 08/30/25 Time of procedure: 10:37 Pre-op diagnosis: UGI bleed Post-op diagnosis: other (LA Grade D esophagitis (possible eosinophilic, possible fungal), moderate to severe antritis/gastritis) Procedure & Clinicians Study performed: EGD with biopsy Same procedure(s) as scheduled: Yes Indications: 50yo F with UGI bleed Surgeon: Rogelio Kamara Anesthesia Type: MAC +/- Procedure Notes SCOAP/Timeout: Performed Procedure in detail: EGD Informed consent was obtained. The procedure, its risks, benefits, and alternatives were discussed. Patient understood and agreed to proceed. The patient was placed in the left lateral decubitus position with head elevated. Sedation given per anesthesia. The video endoscope was inserted into the oropharynx and guided under direct vision into the esophagus, stomach, and duodenum which were carefully examined. The scope was retroflexed to examine the hiatus and gastroesophageal junction. Antral biopsies were obtained for Helicobacter pylori. The patient tolerated the procedure very well. There were no apparent complications. Significant EGD findings: Z-line noted at: 37cm Long streaks of erythema with white coating in esophagus, extend proximally to mid esophagus, LA Grade D, possible fungal esophagitis, possible eosinophilic, biopsied No hiatal hernia Moderate to severe gastritis, linear erythematous streaks in antrum, extending throughout gastric body, possible H pylori, biopsied No ulcer in esophagus, stomach or duodenum Duodenum normal Likely source of bleeding gastritis and/or esophagitis Consider empiric Nystatin swish and swallow Consider empiric H pylori regimen Findings: gastritis and other findings (esophagitis) Specimen(s): other (biopsies) Estimated Blood Loss: 5 Complications: none Impression: Moderate to severe gastritis in antrum and body of stomach, possible H pylori LA Grade D esophagitis, possible fungal, possible eosinophilic Post-procedure Recommendations: Will call with biopsy results Plan for aftercare: PACU then ICU Follow up: as needed Disposition: PACU
--- NOTE | 2025-08-30 12:24 | P.PN_ITS ---
Subjective Subjective Date Patient Seen: 08/30/25 Interval history: Chief complaint: Intractable nausea vomiting leading to hematemesis and precipitation of DKA in a type 1 diabetic History of present illness: 08/28: 50-year-old female with type 1 diabetes, prior history bleeding ulcer, and occasional tobacco use who presents to the emergency department complaining of nausea, profuse vomiting and diarrhea. She reports she was in her usual state of health until a couple days prior to admission, when she developed nausea and vomiting. She reports initially the emesis consisted of food products. Then it became dark brown, nearly black per her report. She described it looking like coffee grounds. She notes thereafter, she developed profuse liquid black diarrhea. She reports it got so bad she could not tell when she was passing stool. Her daughters had to help clean her up. She was at the point where she could not hold down even a glass of water. Her blood sugars had been as high as 500. She gave herself 100 units of insulin in the last 24 hours, briefly got it down to 130 but it continued to go back up. She was having dizziness and lightheadedness as well. Some abdominal pain and cramping. She reports a prior history of a gastric ulcer with bleeding some years ago. She was on a 12 week course of a PPI at that time. She does not recall if it was H pylori positive or not. She denies any use of aspirin or NSAIDs. She is not steroid dependent. She does smoke intermittently. She does not drink any alcohol. She reports she took her Tresiba this morning, 25 units. She does not recall when her last hemoglobin A1c was but thinks it was about a year ago. She notes her blood sugars are typically in the 180s to low 200s. She has had significant lows in the past although none recently. She does not typically have high blood sugars beyond the mid 200s. No fevers or chills. No ill exposures. She does note a few weeks ago she developed some abdominal discomfort which was reminiscent of the abdominal pain she had with her ulcer. She actually considered restarting Prilosec, but had not done so Hospital course: 08/29: Patient is still has wide-open anion gap of this morning insulin infusion resumed as dextrose infusion patient is having severe dysphagia and discomfort were unable to perform EGD today 08/30: Anion gap is closed electrolytes normal patient is prepared to undergo EGD is NPO today for this she is alert and cogent per recommendations of surgery was started on H pylori regimen and antifungal regimen for suspicious findings of gastritis for H pylori gastritis and Jennifer esophagitis 08/30: Significant EGD findings: Z-line noted at: 37cm Long streaks of erythema with white coating in esophagus, extend proximally to mid esophagus, LA Grade D, possible fungal esophagitis, possible eosinophilic, biopsied No hiatal hernia Moderate to severe gastritis, linear erythematous streaks in antrum, extending throughout gastric body, possible H pylori, biopsied No ulcer in esophagus, stomach or duodenum Duodenum normal Likely source of bleeding gastritis and/or esophagitis Consider empiric Nystatin swish and swallow Consider empiric H pylori regimen Review of systems: No palpitations shortness for No fever or chills rigors The paresthesia paresis Physical exam: Alert cogent no acute distress HEENT unremarkable No labored respirations Extremities no edema Neuro nonfocal Assessment and plan: DKA * Patient initially presented with DKA as evidenced by decreased PH, anion gap acidosis, and ketonemia. She was initiated on the DKA protocol. Blood sugars were trending down in the emergency department with fluids and an insulin drip. * Anion gap closed after 36 hours Upper GI bleed likely secondary to erosive esophagitis and gastritis without findings of ulceration or duodenitis in the duodenal * Based on her history, she is certainly presents with concerns for an upper GI bleed. * She was guaiac-positive in the emergency department. * She does have a history of gastric ulcer, and this is certainly concerning for recurrence. * Additional possibilities include a Rajni-Mcguire tear or gastritis. * She did receive a bolus dose of pantoprazole in the emergency department. * Will be continued on pantoprazole 40 mg IV b.i.d Code status: * Full Prophylaxis * Contraindicated due to GI bleed Disposition: * Inpatient * Expect 2-3 days of inpatient care to correct her DKA diagnose the source of her GI and initiate treatment as well as resume oral intake of carbohydrate for her diabetes Time based billing: * 35 minutes were involved in evaluation of this patient including [id number] evaluation physical examination discussion with surgery discussion with care team managing insulin and dextrose infusions Exam Vital Signs (past 8 hours): - 08/30/25 04:30 08/30/25 05:00 08/30/25 05:30 Temperature Pulse Rate 72 76 73 Respiratory Rate 14 15 14 Blood Pressure Pulse Oximetry Oxygen Delivery Method 08/30/25 06:00 08/30/25 06:30 08/30/25 07:00 Temperature Pulse Rate 93 H 74 77 Respiratory Rate 26 H 11 L 11 L Blood Pressure Pulse Oximetry Oxygen Delivery Method 08/30/25 07:30 08/30/25 08:00 08/30/25 08:00 Temperature 96.9 F L Pulse Rate 73 72 Respiratory Rate 16 13 Blood Pressure Pulse Oximetry Oxygen Delivery Method 08/30/25 08:00 08/30/25 08:30 08/30/25 08:44 Temperature Pulse Rate 69 81 Respiratory Rate 12 16 Blood Pressure Pulse Oximetry 99 Oxygen Delivery Method Room Air 08/30/25 08:44 08/30/25 09:00 08/30/25 09:30 Temperature Pulse Rate 67 69 Respiratory Rate 8 L 12 Blood Pressure 157/78 H Pulse Oximetry Oxygen Delivery Method 08/30/25 10:10 08/30/25 10:40 08/30/25 10:45 Temperature 97.7 F 99.4 F Pulse Rate 100 H 74 81 Respiratory Rate 16 18 11 L Blood Pressure 133/82 130/65 124/69 Pulse Oximetry 98 98 99 Oxygen Delivery Method Room Air Room Air Room Air 08/30/25 10:49 Temperature 97.4 F L Pulse Rate 85 Respiratory Rate 17 Blood Pressure 128/64 Pulse Oximetry 99 Oxygen Delivery Method Room Air Oxygen Delivery Method Room Air Oxygen Flow Rate 0 Objective Labs 08/30/25 04:12 08/30/25 04:12 Labs: Laboratory Results - last 24 hr 08/28/25 08/29/25 08/29/25 08:38 12:16 13:23 WBC RBC Hgb Hct MCV MCH MCHC RDW Plt Count Neut % (Auto) Lymph % (Auto) Mchenry % (Auto) Eos % (Auto) Baso % (Auto) Neut # (Auto) Lymph # (Auto) Mchenry # (Auto) Eos # (Auto) Baso # (Auto) Sodium 142 Potassium 3.7 Chloride 116 H Carbon Dioxide 12 L BUN 15 Creatinine 0.59 Estimated GFR > 60 BUN/Creatinine Ratio 25.4 H Glucose 223 H D POC Whole Bld Glucose 163 H Calcium 7.8 L Magnesium A.calcoaceticus-baumannii cmplx PCR Not detected Bacteroides fragilis Not detected Jennifer albicans (PCR) Not detected Jennifer auris (PCR) Not detected C. glabrata (PCR) Not detected C. krusei (PCR) Not detected C. parapsilosis (PCR) Not detected C. tropicalis (PCR) Not detected C. neoform/gattii (PCR) Not detected Enterobacterales (PCR) Not detected E. cloacae complex PCR Not detected Enterococc faecalis PCR Not detected Enterococc faecium PCR Not detected E. coli (PCR) Not detected H. influenzae (PCR) Not detected Klebsiella aerogenes (PCR) Not detected Klebsiella oxytoca PCR Not detected Klebsiella pneumoniae Not detected List. monocytogenes PCR Not detected N. meningitidis (PCR) Not detected Proteus species (PCR) Not detected Salmonella spp. (PCR) Not detected Serratia marcescens PCR Not detected Staphylococcus sp PCR Detected Staph aureus (PCR) Not detected mecA/C & MREJ Resist Gene Not applicable mecA/C-Methicil Resis Gene Not applicable mcr-1 Colistin Res Gene PCR Not applicable Staph epidermidis (PCR) Not detected Staph lugdunensis PCR Not detected S. maltophilia (PCR) Not detected Streptococcus sp PCR Not detected Group A Strep (PCR) Not detected Strep agalactiae (PCR) Not detected Strep pneumoniae (PCR) Not detected P. aeruginosa (PCR) Not detected Marisol/B-Vanco Res Genes Not applicable blaIMP Car res Gene PCR Not applicable KPC-Carbap Res Gene PCR Not applicable blaNDM Car Res Gene PCR Not applicable OXA-48 Carbapenem Resis Gene (PCR) Not applicable blaVIM Car Res Gene PCR Not applicable CTX-M Gene Resistance (PCR) Not applicable 08/29/25 08/29/25 08/29/25 14:32 15:32 16:10 WBC RBC Hgb Hct MCV MCH MCHC RDW Plt Count Neut % (Auto) Lymph % (Auto) Mchenry % (Auto) Eos % (Auto) Baso % (Auto) Neut # (Auto) Lymph # (Auto) Mchenry # (Auto) Eos # (Auto) Baso # (Auto) Sodium 140 Potassium 3.5 Chloride 114 H Carbon Dioxide 14 L BUN 13 Creatinine 0.53 Estimated GFR > 60 BUN/Creatinine Ratio 24.5 H Glucose 178 H POC Whole Bld Glucose 169 H 153 H Calcium 7.6 L Magnesium A.calcoaceticus-baumannii cmplx PCR Bacteroides fragilis Jennifer albicans (PCR) Jennifer auris (PCR) C. glabrata (PCR) C. krusei (PCR) C. parapsilosis (PCR) C. tropicalis (PCR) C. neoform/gattii (PCR) Enterobacterales (PCR) E. cloacae complex PCR Enterococc faecalis PCR Enterococc faecium PCR E. coli (PCR) H. influenzae (PCR) Klebsiella aerogenes (PCR) Klebsiella oxytoca PCR Klebsiella pneumoniae List. monocytogenes PCR N. meningitidis (PCR) Proteus species (PCR) Salmonella spp. (PCR) Serratia marcescens PCR Staphylococcus sp PCR Staph aureus (PCR) mecA/C & MREJ Resist Gene mecA/C-Methicil Resis Gene mcr-1 Colistin Res Gene PCR Staph epidermidis (PCR) Staph lugdunensis PCR S. maltophilia (PCR) Streptococcus sp PCR Group A Strep (PCR) Strep agalactiae (PCR) Strep pneumoniae (PCR) P. aeruginosa (PCR) Marisol/B-Vanco Res Genes blaIMP Car res Gene PCR KPC-Carbap Res Gene PCR blaNDM Car Res Gene PCR OXA-48 Carbapenem Resis Gene (PCR) blaVIM Car Res Gene PCR CTX-M Gene Resistance (PCR) 08/29/25 08/29/25 08/29/25 16:19 17:30 18:29 WBC RBC Hgb Hct MCV MCH MCHC RDW Plt Count Neut % (Auto) Lymph % (Auto) Mchenry % (Auto) Eos % (Auto) Baso % (Auto) Neut # (Auto) Lymph # (Auto) Mchenry # (Auto) Eos # (Auto) Baso # (Auto) Sodium Potassium Chloride Carbon Dioxide BUN Creatinine Estimated GFR BUN/Creatinine Ratio Glucose POC Whole Bld Glucose 197 H 191 H 197 H Calcium Magnesium A.calcoaceticus-baumannii cmplx PCR Bacteroides fragilis Jennifer albicans (PCR) Jennifer auris (PCR) C. glabrata (PCR) C. krusei (PCR) C. parapsilosis (PCR) C. tropicalis (PCR) C. neoform/gattii (PCR) Enterobacterales (PCR) E. cloacae complex PCR Enterococc faecalis PCR Enterococc faecium PCR E. coli (PCR) H. influenzae (PCR) Klebsiella aerogenes (PCR) Klebsiella oxytoca PCR Klebsiella pneumoniae List. monocytogenes PCR N. meningitidis (PCR) Proteus species (PCR) Salmonella spp. (PCR) Serratia marcescens PCR Staphylococcus sp PCR Staph aureus (PCR) mecA/C & MREJ Resist Gene mecA/C-Methicil Resis Gene mcr-1 Colistin Res Gene PCR Staph epidermidis (PCR) Staph lugdunensis PCR S. maltophilia (PCR) Streptococcus sp PCR Group A Strep (PCR) Strep agalactiae (PCR) Strep pneumoniae (PCR) P. aeruginosa (PCR) Marisol/B-Vanco Res Genes blaIMP Car res Gene PCR KPC-Carbap Res Gene PCR blaNDM Car Res Gene PCR OXA-48 Carbapenem Resis Gene (PCR) blaVIM Car Res Gene PCR CTX-M Gene Resistance (PCR) 08/29/25 08/29/25 08/30/25 20:06 22:17 02:37 WBC RBC Hgb Hct MCV MCH MCHC RDW Plt Count Neut % (Auto) Lymph % (Auto) Mchenry % (Auto) Eos % (Auto) Baso % (Auto) Neut # (Auto) Lymph # (Auto) Mchenry # (Auto) Eos # (Auto) Baso # (Auto) Sodium Potassium Chloride Carbon Dioxide BUN Creatinine Estimated GFR BUN/Creatinine Ratio Glucose POC Whole Bld Glucose 186 H 144 H 237 H Calcium Magnesium A.calcoaceticus-baumannii cmplx PCR Bacteroides fragilis Jennifer albicans (PCR) Jennifer auris (PCR) C. glabrata (PCR) C. krusei (PCR) C. parapsilosis (PCR) C. tropicalis (PCR) C. neoform/gattii (PCR) Enterobacterales (PCR) E. cloacae complex PCR Enterococc faecalis PCR Enterococc faecium PCR E. coli (PCR) H. influenzae (PCR) Klebsiella aerogenes (PCR) Klebsiella oxytoca PCR Klebsiella pneumoniae List. monocytogenes PCR N. meningitidis (PCR) Proteus species (PCR) Salmonella spp. (PCR) Serratia marcescens PCR Staphylococcus sp PCR Staph aureus (PCR) mecA/C & MREJ Resist Gene mecA/C-Methicil Resis Gene mcr-1 Colistin Res Gene PCR Staph epidermidis (PCR) Staph lugdunensis PCR S. maltophilia (PCR) Streptococcus sp PCR Group A Strep (PCR) Strep agalactiae (PCR) Strep pneumoniae (PCR) P. aeruginosa (PCR) Marisol/B-Vanco Res Genes blaIMP Car res Gene PCR KPC-Carbap Res Gene PCR blaNDM Car Res Gene PCR OXA-48 Carbapenem Resis Gene (PCR) blaVIM Car Res Gene PCR CTX-M Gene Resistance (PCR) 08/30/25 08/30/25 08/30/25 04:12 08:42 10:17 WBC 7.7 D RBC 4.09 Hgb 12.0 Hct 35.2 L MCV 86.1 MCH 29.3 MCHC 34.0 RDW 14.2 Plt Count 154 Neut % (Auto) 69.6 Lymph % (Auto) 23.2 L Mchenry % (Auto) 3.7 Eos % (Auto) 0.8 L Baso % (Auto) 2.7 H Neut # (Auto) 5400 Lymph # (Auto) 1800 Mchenry # (Auto) 300 Eos # (Auto) 100 Baso # (Auto) 200 H Sodium 136 L Potassium 3.8 Chloride 112 H Carbon Dioxide 18 L BUN 10 Creatinine 0.47 L Estimated GFR > 60 BUN/Creatinine Ratio 21.3 Glucose 257 H POC Whole Bld Glucose 295 H 274 H Calcium 7.4 L Magnesium 1.8 A.calcoaceticus-baumannii cmplx PCR Bacteroides fragilis Jennifer albicans (PCR) Jennifer auris (PCR) C. glabrata (PCR) C. krusei (PCR) C. parapsilosis (PCR) C. tropicalis (PCR) C. neoform/gattii (PCR) Enterobacterales (PCR) E. cloacae complex PCR Enterococc faecalis PCR Enterococc faecium PCR E. coli (PCR) H. influenzae (PCR) Klebsiella aerogenes (PCR) Klebsiella oxytoca PCR Klebsiella pneumoniae List. monocytogenes PCR N. meningitidis (PCR) Proteus species (PCR) Salmonella spp. (PCR) Serratia marcescens PCR Staphylococcus sp PCR Staph aureus (PCR) mecA/C & MREJ Resist Gene mecA/C-Methicil Resis Gene mcr-1 Colistin Res Gene PCR Staph epidermidis (PCR) Staph lugdunensis PCR S. maltophilia (PCR) Streptococcus sp PCR Group A Strep (PCR) Strep agalactiae (PCR) Strep pneumoniae (PCR) P. aeruginosa (PCR) Marisol/B-Vanco Res Genes blaIMP Car res Gene PCR KPC-Carbap Res Gene PCR blaNDM Car Res Gene PCR OXA-48 Carbapenem Resis Gene (PCR) blaVIM Car Res Gene PCR CTX-M Gene Resistance (PCR) 08/30/25 11:49 WBC RBC Hgb Hct MCV MCH MCHC RDW Plt Count Neut % (Auto) Lymph % (Auto) Mchenry % (Auto) Eos % (Auto) Baso % (Auto) Neut # (Auto) Lymph # (Auto) Mchenry # (Auto) Eos # (Auto) Baso # (Auto) Sodium Potassium Chloride Carbon Dioxide BUN Creatinine Estimated GFR BUN/Creatinine Ratio Glucose POC Whole Bld Glucose 165 H D Calcium Magnesium A.calcoaceticus-baumannii cmplx PCR Bacteroides fragilis Jennifer albicans (PCR) Jennifer auris (PCR) C. glabrata (PCR) C. krusei (PCR) C. parapsilosis (PCR) C. tropicalis (PCR) C. neoform/gattii (PCR) Enterobacterales (PCR) E. cloacae complex PCR Enterococc faecalis PCR Enterococc faecium PCR E. coli (PCR) H. influenzae (PCR) Klebsiella aerogenes (PCR) Klebsiella oxytoca PCR Klebsiella pneumoniae List. monocytogenes PCR N. meningitidis (PCR) Proteus species (PCR) Salmonella spp. (PCR) Serratia marcescens PCR Staphylococcus sp PCR Staph aureus (PCR) mecA/C & MREJ Resist Gene mecA/C-Methicil Resis Gene mcr-1 Colistin Res Gene PCR Staph epidermidis (PCR) Staph lugdunensis PCR S. maltophilia (PCR) Streptococcus sp PCR Group A Strep (PCR) Strep agalactiae (PCR) Strep pneumoniae (PCR) P. aeruginosa (PCR) Marisol/B-Vanco Res Genes blaIMP Car res Gene PCR KPC-Carbap Res Gene PCR blaNDM Car Res Gene PCR OXA-48 Carbapenem Resis Gene (PCR) blaVIM Car Res Gene PCR CTX-M Gene Resistance (PCR) [facility] History (Updated 08/30/25 @ 07:49 by Makayla Busby RN) Diabetes Social History household members: family and friend(s) Smoking Status: Current some day smoker alcohol intake: never Assessment & Plan Time-Based Coding :: [TOTAL MINUTES] spent with patient and on the chart (including review of chart, obtaining history, exam, reviewing outside data, placing orders, documenting exam and treatment plan, and counseling patient) on [DATE]. Quality VTE Deep Vein Thrombosis/Pulmonary Embolism Present on Admission: No
--- NOTE | 2025-08-30 12:33 | PM.PN.1 ---
Subjective Subjective Date Patient Seen: 08/29/25 Time Patient Seen: 08:30 Interval history: Chief complaint: Intractable nausea vomiting leading to hematemesis and precipitation of DKA in a type 1 diabetic History of present illness: 08/28: 50-year-old female with type 1 diabetes, prior history bleeding ulcer, and occasional tobacco use who presents to the emergency department complaining of nausea, profuse vomiting and diarrhea. She reports she was in her usual state of health until a couple days prior to admission, when she developed nausea and vomiting. She reports initially the emesis consisted of food products. Then it became dark brown, nearly black per her report. She described it looking like coffee grounds. She notes thereafter, she developed profuse liquid black diarrhea. She reports it got so bad she could not tell when she was passing stool. Her daughters had to help clean her up. She was at the point where she could not hold down even a glass of water. Her blood sugars had been as high as 500. She gave herself 100 units of insulin in the last 24 hours, briefly got it down to 130 but it continued to go back up. She was having dizziness and lightheadedness as well. Some abdominal pain and cramping. She reports a prior history of a gastric ulcer with bleeding some years ago. She was on a 12 week course of a PPI at that time. She does not recall if it was H pylori positive or not. She denies any use of aspirin or NSAIDs. She is not steroid dependent. She does smoke intermittently. She does not drink any alcohol. She reports she took her Tresiba this morning, 25 units. She does not recall when her last hemoglobin A1c was but thinks it was about a year ago. She notes her blood sugars are typically in the 180s to low 200s. She has had significant lows in the past although none recently. She does not typically have high blood sugars beyond the mid 200s. No fevers or chills. No ill exposures. She does note a few weeks ago she developed some abdominal discomfort which was reminiscent of the abdominal pain she had with her ulcer. She actually considered restarting Prilosec, but had not done so Hospital course: 08/29: Patient is still has wide-open anion gap of this morning insulin infusion resumed as dextrose infusion patient is having severe dysphagia and discomfort were unable to perform EGD today 08/30: Anion gap is closed electrolytes normal patient is prepared to undergo EGD is NPO today for this she is alert and cogent per recommendations of surgery was started on H pylori regimen and antifungal regimen for suspicious findings of gastritis for H pylori gastritis and Jennifer esophagitis Review of systems: No palpitations shortness for No fever or chills rigors The paresthesia paresis Physical exam: Alert cogent no acute distress HEENT unremarkable No labored respirations Extremities no edema Neuro nonfocal Assessment and plan: DKA Patient initially presented with DKA as evidenced by decreased PH, anion gap acidosis, and ketonemia. She was initiated on the DKA protocol. Blood sugars were trending down in the emergency department with fluids and an insulin drip. Anion gap not closed yet s Upper GI bleed likely secondary to erosive esophagitis and gastritis without findings of ulceration or duodenitis in the duodenal Based on her history, she is certainly presents with concerns for an upper GI bleed. She was guaiac-positive in the emergency department. She does have a history of gastric ulcer, and this is certainly concerning for recurrence. Additional possibilities include a Rajni-Mcguire tear or gastritis. She did receive a bolus dose of pantoprazole in the emergency department. Will be continued on pantoprazole 40 mg IV b.i.d Code status: Full Prophylaxis Contraindicated due to GI bleed Disposition: Inpatient Expect 2-3 days of inpatient care to correct her DKA diagnose the source of her GI and initiate treatment as well as resume oral intake of carbohydrate for her diabetes Time based billin minutes were involved in evaluation of this patient including [id number] evaluation physical examination discussion with surgery discussion with care team managing insulin and dextrose infusions Exam Vital Signs (past 8 hours): - 08/30/25 05:00 08/30/25 05:30 08/30/25 06:00 Temperature Pulse Rate 76 73 93 H Respiratory Rate 15 14 26 H Blood Pressure Pulse Oximetry Oxygen Delivery Method 08/30/25 06:30 08/30/25 07:00 08/30/25 07:30 Temperature Pulse Rate 74 77 73 Respiratory Rate 11 L 11 L 16 Blood Pressure Pulse Oximetry Oxygen Delivery Method 08/30/25 08:00 08/30/25 08:00 08/30/25 08:00 Temperature 96.9 F L Pulse Rate 72 Respiratory Rate 13 Blood Pressure Pulse Oximetry Oxygen Delivery Method Room Air 08/30/25 08:30 08/30/25 08:44 08/30/25 08:44 Temperature Pulse Rate 69 81 Respiratory Rate 12 16 Blood Pressure 157/78 H Pulse Oximetry 99 Oxygen Delivery Method 08/30/25 09:00 08/30/25 09:30 08/30/25 10:10 Temperature 97.7 F Pulse Rate 67 69 100 H Respiratory Rate 8 L 12 16 Blood Pressure 133/82 Pulse Oximetry 98 Oxygen Delivery Method Room Air 08/30/25 10:40 08/30/25 10:45 08/30/25 10:49 Temperature 99.4 F 97.4 F L Pulse Rate 74 81 85 Respiratory Rate 18 11 L 17 Blood Pressure 130/65 124/69 128/64 Pulse Oximetry 98 99 99 Oxygen Delivery Method Room Air Room Air Room Air Oxygen Delivery Method Room Air Oxygen Flow Rate 0 Objective Labs 08/30/25 04:12 08/30/25 04:12 Labs: Laboratory Results - last 24 hr 08/28/25 08/29/25 08/29/25 08:38 12:16 13:23 WBC RBC Hgb Hct MCV MCH MCHC RDW Plt Count Neut % (Auto) Lymph % (Auto) [place] % (Auto) Eos % (Auto) Baso % (Auto) Neut # (Auto) Lymph # (Auto) [place] # (Auto) Eos # (Auto) Baso # (Auto) Sodium 142 Potassium 3.7 Chloride 116 H Carbon Dioxide 12 L BUN 15 Creatinine 0.59 Estimated GFR > 60 BUN/Creatinine Ratio 25.4 H Glucose 223 H D POC Whole Bld Glucose 163 H Calcium 7.8 L Magnesium A.calcoaceticus-baumannii cmplx PCR Not detected Bacteroides fragilis Not detected Jennifer albicans (PCR) Not detected Jennifer auris (PCR) Not detected C. glabrata (PCR) Not detected C. krusei (PCR) Not detected C. parapsilosis (PCR) Not detected C. tropicalis (PCR) Not detected C. neoform/gattii (PCR) Not detected Enterobacterales (PCR) Not detected E. cloacae complex PCR Not detected Enterococc faecalis PCR Not detected Enterococc faecium PCR Not detected E. coli (PCR) Not detected H. influenzae (PCR) Not detected Klebsiella aerogenes (PCR) Not detected Klebsiella oxytoca PCR Not detected Klebsiella pneumoniae Not detected List. monocytogenes PCR Not detected N. meningitidis (PCR) Not detected Proteus species (PCR) Not detected Salmonella spp. (PCR) Not detected Serratia marcescens PCR Not detected Staphylococcus sp PCR Detected Staph aureus (PCR) Not detected mecA/C & MREJ Resist Gene Not applicable mecA/C-Methicil Resis Gene Not applicable mcr-1 Colistin Res Gene PCR Not applicable Staph epidermidis (PCR) Not detected Staph lugdunensis PCR Not detected S. maltophilia (PCR) Not detected Streptococcus sp PCR Not detected Group A Strep (PCR) Not detected Strep agalactiae (PCR) Not detected Strep pneumoniae (PCR) Not detected P. aeruginosa (PCR) Not detected Marisol/B-Vanco Res Genes Not applicable blaIMP Car res Gene PCR Not applicable KPC-Carbap Res Gene PCR Not applicable blaNDM Car Res Gene PCR Not applicable OXA-48 Carbapenem Resis Gene (PCR) Not applicable blaVIM Car Res Gene PCR Not applicable CTX-M Gene Resistance (PCR) Not applicable 08/29/25 08/29/25 08/29/25 14:32 15:32 16:10 WBC RBC Hgb Hct MCV MCH MCHC RDW Plt Count Neut % (Auto) Lymph % (Auto) [place] % (Auto) Eos % (Auto) Baso % (Auto) Neut # (Auto) Lymph # (Auto) [place] # (Auto) Eos # (Auto) Baso # (Auto) Sodium 140 Potassium 3.5 Chloride 114 H Carbon Dioxide 14 L BUN 13 Creatinine 0.53 Estimated GFR > 60 BUN/Creatinine Ratio 24.5 H Glucose 178 H POC Whole Bld Glucose 169 H 153 H Calcium 7.6 L Magnesium A.calcoaceticus-baumannii cmplx PCR Bacteroides fragilis Jennifer albicans (PCR) Jennifer auris (PCR) C. glabrata (PCR) C. krusei (PCR) C. parapsilosis (PCR) C. tropicalis (PCR) C. neoform/gattii (PCR) Enterobacterales (PCR) E. cloacae complex PCR Enterococc faecalis PCR Enterococc faecium PCR E. coli (PCR) H. influenzae (PCR) Klebsiella aerogenes (PCR) Klebsiella oxytoca PCR Klebsiella pneumoniae List. monocytogenes PCR N. meningitidis (PCR) Proteus species (PCR) Salmonella spp. (PCR) Serratia marcescens PCR Staphylococcus sp PCR Staph aureus (PCR) mecA/C & MREJ Resist Gene mecA/C-Methicil Resis Gene mcr-1 Colistin Res Gene PCR Staph epidermidis (PCR) Staph lugdunensis PCR S. maltophilia (PCR) Streptococcus sp PCR Group A Strep (PCR) Strep agalactiae (PCR) Strep pneumoniae (PCR) P. aeruginosa (PCR) Marisol/B-Vanco Res Genes blaIMP Car res Gene PCR KPC-Carbap Res Gene PCR blaNDM Car Res Gene PCR OXA-48 Carbapenem Resis Gene (PCR) blaVIM Car Res Gene PCR CTX-M Gene Resistance (PCR) 08/29/25 08/29/25 08/29/25 16:19 17:30 18:29 WBC RBC Hgb Hct MCV MCH MCHC RDW Plt Count Neut % (Auto) Lymph % (Auto) [place] % (Auto) Eos % (Auto) Baso % (Auto) Neut # (Auto) Lymph # (Auto) [place] # (Auto) Eos # (Auto) Baso # (Auto) Sodium Potassium Chloride Carbon Dioxide BUN Creatinine Estimated GFR BUN/Creatinine Ratio Glucose POC Whole Bld Glucose 197 H 191 H 197 H Calcium Magnesium A.calcoaceticus-baumannii cmplx PCR Bacteroides fragilis Jennifer albicans (PCR) Jennifer auris (PCR) C. glabrata (PCR) C. krusei (PCR) C. parapsilosis (PCR) C. tropicalis (PCR) C. neoform/gattii (PCR) Enterobacterales (PCR) E. cloacae complex PCR Enterococc faecalis PCR Enterococc faecium PCR E. coli (PCR) H. influenzae (PCR) Klebsiella aerogenes (PCR) Klebsiella oxytoca PCR Klebsiella pneumoniae List. monocytogenes PCR N. meningitidis (PCR) Proteus species (PCR) Salmonella spp. (PCR) Serratia marcescens PCR Staphylococcus sp PCR Staph aureus (PCR) mecA/C & MREJ Resist Gene mecA/C-Methicil Resis Gene mcr-1 Colistin Res Gene PCR Staph epidermidis (PCR) Staph lugdunensis PCR S. maltophilia (PCR) Streptococcus sp PCR Group A Strep (PCR) Strep agalactiae (PCR) Strep pneumoniae (PCR) P. aeruginosa (PCR) Marisol/B-Vanco Res Genes blaIMP Car res Gene PCR KPC-Carbap Res Gene PCR blaNDM Car Res Gene PCR OXA-48 Carbapenem Resis Gene (PCR) blaVIM Car Res Gene PCR CTX-M Gene Resistance (PCR) 08/29/25 08/29/25 08/30/25 20:06 22:17 02:37 WBC RBC Hgb Hct MCV MCH MCHC RDW Plt Count Neut % (Auto) Lymph % (Auto) [place] % (Auto) Eos % (Auto) Baso % (Auto) Neut # (Auto) Lymph # (Auto) [place] # (Auto) Eos # (Auto) Baso # (Auto) Sodium Potassium Chloride Carbon Dioxide BUN Creatinine Estimated GFR BUN/Creatinine Ratio Glucose POC Whole Bld Glucose 186 H 144 H 237 H Calcium Magnesium A.calcoaceticus-baumannii cmplx PCR Bacteroides fragilis Jennifer albicans (PCR) Jennifer auris (PCR) C. glabrata (PCR) C. krusei (PCR) C. parapsilosis (PCR) C. tropicalis (PCR) C. neoform/gattii (PCR) Enterobacterales (PCR) E. cloacae complex PCR Enterococc faecalis PCR Enterococc faecium PCR E. coli (PCR) H. influenzae (PCR) Klebsiella aerogenes (PCR) Klebsiella oxytoca PCR Klebsiella pneumoniae List. monocytogenes PCR N. meningitidis (PCR) Proteus species (PCR) Salmonella spp. (PCR) Serratia marcescens PCR Staphylococcus sp PCR Staph aureus (PCR) mecA/C & MREJ Resist Gene mecA/C-Methicil Resis Gene mcr-1 Colistin Res Gene PCR Staph epidermidis (PCR) Staph lugdunensis PCR S. maltophilia (PCR) Streptococcus sp PCR Group A Strep (PCR) Strep agalactiae (PCR) Strep pneumoniae (PCR) P. aeruginosa (PCR) Marisol/B-Vanco Res Genes blaIMP Car res Gene PCR KPC-Carbap Res Gene PCR blaNDM Car Res Gene PCR OXA-48 Carbapenem Resis Gene (PCR) blaVIM Car Res Gene PCR CTX-M Gene Resistance (PCR) 08/30/25 08/30/25 08/30/25 04:12 08:42 10:17 WBC 7.7 D RBC 4.09 Hgb 12.0 Hct 35.2 L MCV 86.1 MCH 29.3 MCHC 34.0 RDW 14.2 Plt Count 154 Neut % (Auto) 69.6 Lymph % (Auto) 23.2 L [place] % (Auto) 3.7 Eos % (Auto) 0.8 L Baso % (Auto) 2.7 H Neut # (Auto) 5400 Lymph # (Auto) 1800 [place] # (Auto) 300 Eos # (Auto) 100 Baso # (Auto) 200 H Sodium 136 L Potassium 3.8 Chloride 112 H Carbon Dioxide 18 L BUN 10 Creatinine 0.47 L Estimated GFR > 60 BUN/Creatinine Ratio 21.3 Glucose 257 H POC Whole Bld Glucose 295 H 274 H Calcium 7.4 L Magnesium 1.8 A.calcoaceticus-baumannii cmplx PCR Bacteroides fragilis Jennifer albicans (PCR) Jennifer auris (PCR) C. glabrata (PCR) C. krusei (PCR) C. parapsilosis (PCR) C. tropicalis (PCR) C. neoform/gattii (PCR) Enterobacterales (PCR) E. cloacae complex PCR Enterococc faecalis PCR Enterococc faecium PCR E. coli (PCR) H. influenzae (PCR) Klebsiella aerogenes (PCR) Klebsiella oxytoca PCR Klebsiella pneumoniae List. monocytogenes PCR N. meningitidis (PCR) Proteus species (PCR) Salmonella spp. (PCR) Serratia marcescens PCR Staphylococcus sp PCR Staph aureus (PCR) mecA/C & MREJ Resist Gene mecA/C-Methicil Resis Gene mcr-1 Colistin Res Gene PCR Staph epidermidis (PCR) Staph lugdunensis PCR S. maltophilia (PCR) Streptococcus sp PCR Group A Strep (PCR) Strep agalactiae (PCR) Strep pneumoniae (PCR) P. aeruginosa (PCR) Marisol/B-Vanco Res Genes blaIMP Car res Gene PCR KPC-Carbap Res Gene PCR blaNDM Car Res Gene PCR OXA-48 Carbapenem Resis Gene (PCR) blaVIM Car Res Gene PCR CTX-M Gene Resistance (PCR) 08/30/25 11:49 WBC RBC Hgb Hct MCV MCH MCHC RDW Plt Count Neut % (Auto) Lymph % (Auto) [place] % (Auto) Eos % (Auto) Baso % (Auto) Neut # (Auto) Lymph # (Auto) [place] # (Auto) Eos # (Auto) Baso # (Auto) Sodium Potassium Chloride Carbon Dioxide BUN Creatinine Estimated GFR BUN/Creatinine Ratio Glucose POC Whole Bld Glucose 165 H D Calcium Magnesium A.calcoaceticus-baumannii cmplx PCR Bacteroides fragilis Jennifer albicans (PCR) Jennifer auris (PCR) C. glabrata (PCR) C. krusei (PCR) C. parapsilosis (PCR) C. tropicalis (PCR) C. neoform/gattii (PCR) Enterobacterales (PCR) E. cloacae complex PCR Enterococc faecalis PCR Enterococc faecium PCR E. coli (PCR) H. influenzae (PCR) Klebsiella aerogenes (PCR) Klebsiella oxytoca PCR Klebsiella pneumoniae List. monocytogenes PCR N. meningitidis (PCR) Proteus species (PCR) Salmonella spp. (PCR) Serratia marcescens PCR Staphylococcus sp PCR Staph aureus (PCR) mecA/C & MREJ Resist Gene mecA/C-Methicil Resis Gene mcr-1 Colistin Res Gene PCR Staph epidermidis (PCR) Staph lugdunensis PCR S. maltophilia (PCR) Streptococcus sp PCR Group A Strep (PCR) Strep agalactiae (PCR) Strep pneumoniae (PCR) P. aeruginosa (PCR) Marisol/B-Vanco Res Genes blaIMP Car res Gene PCR KPC-Carbap Res Gene PCR blaNDM Car Res Gene PCR OXA-48 Carbapenem Resis Gene (PCR) blaVIM Car Res Gene PCR CTX-M Gene Resistance (PCR) PFSH Medical History (Updated 08/30/25 @ 07:49 by Makayla Busby RN) Diabetes Social History household members: family and friend(s) Smoking Status: Current some day smoker alcohol intake: never Assessment & Plan Time-Based Coding :: [TOTAL MINUTES] spent with patient and on the chart (including review of chart, obtaining history, exam, reviewing outside data, placing orders, documenting exam and treatment plan, and counseling patient) on [DATE]. Quality VTE Deep Vein Thrombosis/Pulmonary Embolism Present on Admission: No
[2025-08-30] MEDS: NYSTATIN SUSP 500,000 UNIT/5 ML UDC 500000 UNIT PO ×3 (12:47→20:19)
--- NOTE | 2025-08-30 13:13 | CM.DPNOTE ---
DCP Continued: Reviewed EMR and team rounds for pt?s medical status. Per hospitalist, pt needs another dose of IV dextrose and increasing insulin dose while admitted. No discharge needs identified at this time. Plan: Anticipating discharge home with daughters to transport on 08/31 or when medically stable. CM Team will continue to follow for coordination of discharge plans. MAGNUS Bruno
[2025-08-30 13:59] LABS: Ketones (Beta-Hydroxybutyrate) 2.07 mmol/L (<0.27)
[2025-08-30] MEDS: CLARITHROMYCIN 500 MG TABLET PO ×2 (14:36→20:18)
[2025-08-30] MEDS: AMOXICILLIN 250 MG CAPSULE 1000 MG PO ×2 (14:36→20:19)
[2025-08-30] MEDS: FLUCONAZOLE 100 MG TABLET 200 MG PO (14:37)
[2025-08-31] VITALS (10 sets, daily range): BP systolic 146–169; BP diastolic 66–91; PULSE 73–82; RESP 16–17; TEMP 36.2–36.4; O2SAT 90–100
[2025-08-31] MEDS: METOCLOPRAMIDE 10 MG/2 ML INJ IV ×4 (02:33→19:51)
[2025-08-31 05:16] LABS: Add Manual Diff / Slide Review NO; Hematocrit 34.0 % (36-46); Hemoglobin 11.9 g/dL (12.0-16.0); Lymphocytes Absolute Auto 2900 /uL (1100-4500); Mean Corpuscular HGB Conc 34.9 % (30-36); Mean Corpuscular Hemoglobin 29.7 PG (26-34); Mean Corpuscular Volume 85.0 fL (80-100); Platelet Count 139 X10^3/uL (150-400)
[2025-08-31 05:33] LABS: Blood Urea Nitrogen 7 mg/dL (7-17); Calcium 7.6 mg/dL (8.4-10.2); Carbon Dioxide 24 mmol/L (22-32); Chloride 109 mmol/L (98-107); Estimated Glomerular Filt Rate > 60 mL/min (>60); Glucose 72 mg/dL (70-99); HEMOLYSIS < 15 (0-50); Magnesium 1.8 mg/dL (1.6-2.3); Potassium 2.9 mmol/L (3.4-5.1); Sodium 139 mmol/L (137-145)
--- NOTE | 2025-08-31 07:14 | P.PN_ITS ---
Subjective Subjective Date Patient Seen: 08/31/25 Time Patient Seen: 07:14 Interval history: Feels better today Tolerating diet Exam Vital Signs (past 8 hours): - 08/31/25 04:00 Pulse Rate 78 Respiratory Rate 16 Blood Pressure 166/85 H Pulse Oximetry 100 Oxygen Flow Rate 0 Oxygen Delivery Method Room Air Oxygen Flow Rate 0 Narrative Exam Narrative: ABD: soft, NTND Objective Labs 08/31/25 04:20 08/31/25 04:20 Labs: Laboratory Results - last 24 hr 08/28/25 08/30/25 08/30/25 08:38 04:12 08:42 WBC RBC Hgb Hct MCV MCH MCHC RDW Plt Count Neut % (Auto) Lymph % (Auto) [place] % (Auto) Eos % (Auto) Baso % (Auto) Neut # (Auto) Lymph # (Auto) [place] # (Auto) Eos # (Auto) Baso # (Auto) Sodium Potassium Chloride Carbon Dioxide BUN Creatinine Estimated GFR BUN/Creatinine Ratio Glucose POC Whole Bld Glucose 295 H Calcium Magnesium Ketones 2.07 H A.calcoaceticus-baumannii cmplx PCR Not detected Bacteroides fragilis Not detected Jennifer albicans (PCR) Not detected Jennifer auris (PCR) Not detected C. glabrata (PCR) Not detected C. krusei (PCR) Not detected C. parapsilosis (PCR) Not detected C. tropicalis (PCR) Not detected C. neoform/gattii (PCR) Not detected Enterobacterales (PCR) Not detected E. cloacae complex PCR Not detected Enterococc faecalis PCR Not detected Enterococc faecium PCR Not detected E. coli (PCR) Not detected H. influenzae (PCR) Not detected Klebsiella aerogenes (PCR) Not detected Klebsiella oxytoca PCR Not detected Klebsiella pneumoniae Not detected List. monocytogenes PCR Not detected N. meningitidis (PCR) Not detected Proteus species (PCR) Not detected Salmonella spp. (PCR) Not detected Serratia marcescens PCR Not detected Staphylococcus sp PCR Detected Staph aureus (PCR) Not detected mecA/C & MREJ Resist Gene Not applicable mecA/C-Methicil Resis Gene Not applicable mcr-1 Colistin Res Gene PCR Not applicable Staph epidermidis (PCR) Not detected Staph lugdunensis PCR Not detected S. maltophilia (PCR) Not detected Streptococcus sp PCR Not detected Group A Strep (PCR) Not detected Strep agalactiae (PCR) Not detected Strep pneumoniae (PCR) Not detected P. aeruginosa (PCR) Not detected Marisol/B-Vanco Res Genes Not applicable blaIMP Car res Gene PCR Not applicable KPC-Carbap Res Gene PCR Not applicable blaNDM Car Res Gene PCR Not applicable OXA-48 Carbapenem Resis Gene (PCR) Not applicable blaVIM Car Res Gene PCR Not applicable CTX-M Gene Resistance (PCR) Not applicable 08/30/25 08/30/25 08/30/25 10:17 11:49 16:45 WBC RBC Hgb Hct MCV MCH MCHC RDW Plt Count Neut % (Auto) Lymph % (Auto) [place] % (Auto) Eos % (Auto) Baso % (Auto) Neut # (Auto) Lymph # (Auto) [place] # (Auto) Eos # (Auto) Baso # (Auto) Sodium Potassium Chloride Carbon Dioxide BUN Creatinine Estimated GFR BUN/Creatinine Ratio Glucose POC Whole Bld Glucose 274 H 165 H D 79 Calcium Magnesium Ketones A.calcoaceticus-baumannii cmplx PCR Bacteroides fragilis Jennifer albicans (PCR) Jennifer auris (PCR) C. glabrata (PCR) C. krusei (PCR) C. parapsilosis (PCR) C. tropicalis (PCR) C. neoform/gattii (PCR) Enterobacterales (PCR) E. cloacae complex PCR Enterococc faecalis PCR Enterococc faecium PCR E. coli (PCR) H. influenzae (PCR) Klebsiella aerogenes (PCR) Klebsiella oxytoca PCR Klebsiella pneumoniae List. monocytogenes PCR N. meningitidis (PCR) Proteus species (PCR) Salmonella spp. (PCR) Serratia marcescens PCR Staphylococcus sp PCR Staph aureus (PCR) mecA/C & MREJ Resist Gene mecA/C-Methicil Resis Gene mcr-1 Colistin Res Gene PCR Staph epidermidis (PCR) Staph lugdunensis PCR S. maltophilia (PCR) Streptococcus sp PCR Group A Strep (PCR) Strep agalactiae (PCR) Strep pneumoniae (PCR) P. aeruginosa (PCR) Marisol/B-Vanco Res Genes blaIMP Car res Gene PCR KPC-Carbap Res Gene PCR blaNDM Car Res Gene PCR OXA-48 Carbapenem Resis Gene (PCR) blaVIM Car Res Gene PCR CTX-M Gene Resistance (PCR) 08/30/25 08/31/25 20:17 04:20 WBC 7.1 RBC 4.00 Hgb 11.9 L Hct 34.0 L MCV 85.0 MCH 29.7 MCHC 34.9 RDW 13.4 Plt Count 139 L Neut % (Auto) 52.3 Lymph % (Auto) 40.3 H [place] % (Auto) 5.8 Eos % (Auto) 0.9 L Baso % (Auto) 0.7 Neut # (Auto) 3700 Lymph # (Auto) 2900 [place] # (Auto) 400 Eos # (Auto) 100 Baso # (Auto) 0 Sodium 139 Potassium 2.9 L Chloride 109 H Carbon Dioxide 24 BUN 7 Creatinine 0.45 L Estimated GFR > 60 BUN/Creatinine Ratio 15.6 Glucose 72 D POC Whole Bld Glucose 72 Calcium 7.6 L Magnesium 1.8 Ketones A.calcoaceticus-baumannii cmplx PCR Bacteroides fragilis Jennifer albicans (PCR) Jennifer auris (PCR) C. glabrata (PCR) C. krusei (PCR) C. parapsilosis (PCR) C. tropicalis (PCR) C. neoform/gattii (PCR) Enterobacterales (PCR) E. cloacae complex PCR Enterococc faecalis PCR Enterococc faecium PCR E. coli (PCR) H. influenzae (PCR) Klebsiella aerogenes (PCR) Klebsiella oxytoca PCR Klebsiella pneumoniae List. monocytogenes PCR N. meningitidis (PCR) Proteus species (PCR) Salmonella spp. (PCR) Serratia marcescens PCR Staphylococcus sp PCR Staph aureus (PCR) mecA/C & MREJ Resist Gene mecA/C-Methicil Resis Gene mcr-1 Colistin Res Gene PCR Staph epidermidis (PCR) Staph lugdunensis PCR S. maltophilia (PCR) Streptococcus sp PCR Group A Strep (PCR) Strep agalactiae (PCR) Strep pneumoniae (PCR) P. aeruginosa (PCR) Marisol/B-Vanco Res Genes blaIMP Car res Gene PCR KPC-Carbap Res Gene PCR blaNDM Car Res Gene PCR OXA-48 Carbapenem Resis Gene (PCR) blaVIM Car Res Gene PCR CTX-M Gene Resistance (PCR) PFSH Medical History (Updated 08/31/25 @ 07:15 by Rogelio Kamara MD) Diabetes Social History household members: family and friend(s) Smoking Status: Current some day smoker alcohol intake: never Assessment & Plan Assessment and plan (1) Hematemesis with nausea: Status: Acute (2) Melena: Status: Acute (3) Nausea and vomiting: Qualifiers: Vomiting type: unspecified Qualified Code(s): R11.2 - Nausea with vomiting, unspecified Status: Acute (4) Epigastric pain: Status: Acute (5) Gastritis: Qualifiers: Gastritis type: unspecified gastritis Chronicity: acute Gastritis bleeding: presence of bleeding unspecified Qualified Code(s): K29.00 - Acute gastritis without bleeding Status: Acute (6) Esophagitis determined by endoscopy: Status: Acute Plan Esophagitis, possible fungal, possible eosinophilic Gastritis, possible H pylori Continue PPI, Nystatin S&S, empiric H pylori treatment Symptoms improving Biopsy results pending Time-Based Coding :: [TOTAL MINUTES] spent with patient and on the chart (including review of chart, obtaining history, exam, reviewing outside data, placing orders, documenting exam and treatment plan, and counseling patient) on [DATE]. Quality VTE Deep Vein Thrombosis/Pulmonary Embolism Present on Admission: No [facility] PROFEE Screening Technician Document charge(s): Yes Charge Codes Subsequent inpatient/observation care: 24498
[2025-08-31] MEDS: PANTOPRAZOLE 40 MG VIAL IV ×2 (09:01→19:52)
[2025-08-31] MEDS: POTASSIUM CHLORIDE 20 MEQ TAB 40 MEQ PO ×2 (09:05→17:17)
[2025-08-31] MEDS: FLUCONAZOLE 100 MG TABLET 200 MG PO (09:05)
[2025-08-31] MEDS: CLARITHROMYCIN 500 MG TABLET PO ×2 (09:06→19:52)
[2025-08-31] MEDS: AMOXICILLIN 250 MG CAPSULE 1000 MG PO ×2 (09:06→19:52)
[2025-08-31] MEDS: NYSTATIN SUSP 500,000 UNIT/5 ML UDC 500000 UNIT PO ×4 (09:06→19:52)
[2025-08-31] MEDS: INSULIN GLARGINE 100 UNIT/ML 3ML PEN 40 UNIT SUBCUT (09:07)
[2025-08-31] MEDS: INSULIN LISPRO 100 UNIT/ML 3ML VIAL SUBCUT ×3 (09:10→17:18)
--- NOTE | 2025-08-31 11:12 | P.PN_ITS ---
Subjective Subjective Date Patient Seen: 08/31/25 Interval history: Chief complaint: Intractable nausea vomiting leading to hematemesis and precipitation of DKA in a type 1 diabetic History of present illness: 08/28: 50-year-old female with type 1 diabetes, prior history bleeding ulcer, and occasional tobacco use who presents to the emergency department complaining of nausea, profuse vomiting and diarrhea. She reports she was in her usual state of health until a couple days prior to admission, when she developed nausea and vomiting. She reports initially the emesis consisted of food products. Then it became dark brown, nearly black per her report. She described it looking like coffee grounds. She notes thereafter, she developed profuse liquid black diarrhea. She reports it got so bad she could not tell when she was passing stool. Her daughters had to help clean her up. She was at the point where she could not hold down even a glass of water. Her blood sugars had been as high as 500. She gave herself 100 units of insulin in the last 24 hours, briefly got it down to 130 but it continued to go back up. She was having dizziness and lightheadedness as well. Some abdominal pain and cramping. She reports a prior history of a gastric ulcer with bleeding some years ago. She was on a 12 week course of a PPI at that time. She does not recall if it was H pylori positive or not. She denies any use of aspirin or NSAIDs. She is not steroid dependent. She does smoke intermittently. She does not drink any alcohol. She reports she took her Tresiba this morning, 25 units. She does not recall when her last hemoglobin A1c was but thinks it was about a year ago. She notes her blood sugars are typically in the 180s to low 200s. She has had significant lows in the past although none recently. She does not typically have high blood sugars beyond the mid 200s. No fevers or chills. No ill exposures. She does note a few weeks ago she developed some abdominal discomfort which was reminiscent of the abdominal pain she had with her ulcer. She actually considered restarting Prilosec, but had not done so Hospital course: 08/29: Patient is still has wide-open anion gap of this morning insulin infusion resumed as dextrose infusion patient is having severe dysphagia and discomfort were unable to perform EGD today 08/30: Anion gap is closed electrolytes normal patient is prepared to undergo EGD is NPO today for this she is alert and cogent per recommendations of surgery was started on H pylori regimen and antifungal regimen for suspicious findings of gastritis for H pylori gastritis and Jennifer esophagitis 08/31: Is no longer vomiting is just having some esophageal pain with swallowing any liquids has been on 1 day of Diflucan and H pylori quadruple therapy diabetes seems to be in control fair chance he will be stable enough to go home tomorrow Review of systems: No palpitations shortness for No fever or chills rigors The paresthesia paresis Physical exam: Alert cogent no acute distress HEENT unremarkable No labored respirations Extremities no edema Neuro nonfocal Assessment and plan: DKA * Resolved * Advancing diet Upper GI bleed likely secondary to erosive esophagitis and gastritis without findings of ulceration or duodenitis in the duodenal * Symptoms improving on: * Diflucan * PPI * H pylori regimen Code status: * Full Prophylaxis * Contraindicated due to GI bleed Disposition: * Inpatient * Expect 24-48 hours of inpatient care to be capable of adequately resuming oral intake of carbohydrate for her diabetes Time based billing: * 35 minutes were involved in evaluation of this patient including [id number] evaluation physical examination discussion with surgery discussion with care team managing insulin and dextrose infusions Exam Vital Signs (past 8 hours): - 08/31/25 04:00 08/31/25 04:22 08/31/25 04:22 Temperature Pulse Rate 78 Respiratory Rate 16 Blood Pressure 166/85 H 166/85 H Pulse Oximetry 100 100 Oxygen Flow Rate 0 08/31/25 08:00 08/31/25 08:00 08/31/25 08:06 Temperature 97.5 F L Pulse Rate 81 Respiratory Rate Blood Pressure 169/91 H Pulse Oximetry 100 Oxygen Flow Rate Oxygen Delivery Method Room Air Oxygen Flow Rate 0 Objective Labs 08/31/25 04:20 08/31/25 04:20 Labs: Laboratory Results - last 24 hr 08/28/25 08/30/25 08/30/25 08:38 04:12 11:49 WBC RBC Hgb Hct MCV MCH MCHC RDW Plt Count Neut % (Auto) Lymph % (Auto) Dixon % (Auto) Eos % (Auto) Baso % (Auto) Neut # (Auto) Lymph # (Auto) Dixon # (Auto) Eos # (Auto) Baso # (Auto) Sodium Potassium Chloride Carbon Dioxide BUN Creatinine Estimated GFR BUN/Creatinine Ratio Glucose POC Whole Bld Glucose 165 H D Calcium Magnesium Ketones 2.07 H A.calcoaceticus-baumannii cmplx PCR Not detected Bacteroides fragilis Not detected Jennifer albicans (PCR) Not detected Jennifer auris (PCR) Not detected C. glabrata (PCR) Not detected C. krusei (PCR) Not detected C. parapsilosis (PCR) Not detected C. tropicalis (PCR) Not detected C. neoform/gattii (PCR) Not detected Enterobacterales (PCR) Not detected E. cloacae complex PCR Not detected Enterococc faecalis PCR Not detected Enterococc faecium PCR Not detected E. coli (PCR) Not detected H. influenzae (PCR) Not detected Klebsiella aerogenes (PCR) Not detected Klebsiella oxytoca PCR Not detected Klebsiella pneumoniae Not detected List. monocytogenes PCR Not detected N. meningitidis (PCR) Not detected Proteus species (PCR) Not detected Salmonella spp. (PCR) Not detected Serratia marcescens PCR Not detected Staphylococcus sp PCR Detected Staph aureus (PCR) Not detected mecA/C & MREJ Resist Gene Not applicable mecA/C-Methicil Resis Gene Not applicable mcr-1 Colistin Res Gene PCR Not applicable Staph epidermidis (PCR) Not detected Staph lugdunensis PCR Not detected S. maltophilia (PCR) Not detected Streptococcus sp PCR Not detected Group A Strep (PCR) Not detected Strep agalactiae (PCR) Not detected Strep pneumoniae (PCR) Not detected P. aeruginosa (PCR) Not detected Marisol/B-Vanco Res Genes Not applicable blaIMP Car res Gene PCR Not applicable KPC-Carbap Res Gene PCR Not applicable blaNDM Car Res Gene PCR Not applicable OXA-48 Carbapenem Resis Gene (PCR) Not applicable blaVIM Car Res Gene PCR Not applicable CTX-M Gene Resistance (PCR) Not applicable 08/30/25 08/30/25 08/31/25 16:45 20:17 04:20 WBC 7.1 RBC 4.00 Hgb 11.9 L Hct 34.0 L MCV 85.0 MCH 29.7 MCHC 34.9 RDW 13.4 Plt Count 139 L Neut % (Auto) 52.3 Lymph % (Auto) 40.3 H Dixon % (Auto) 5.8 Eos % (Auto) 0.9 L Baso % (Auto) 0.7 Neut # (Auto) 3700 Lymph # (Auto) 2900 Dixon # (Auto) 400 Eos # (Auto) 100 Baso # (Auto) 0 Sodium 139 Potassium 2.9 L Chloride 109 H Carbon Dioxide 24 BUN 7 Creatinine 0.45 L Estimated GFR > 60 BUN/Creatinine Ratio 15.6 Glucose 72 D POC Whole Bld Glucose 79 72 Calcium 7.6 L Magnesium 1.8 Ketones A.calcoaceticus-baumannii cmplx PCR Bacteroides fragilis Jennifer albicans (PCR) Jennifer auris (PCR) C. glabrata (PCR) C. krusei (PCR) C. parapsilosis (PCR) C. tropicalis (PCR) C. neoform/gattii (PCR) Enterobacterales (PCR) E. cloacae complex PCR Enterococc faecalis PCR Enterococc faecium PCR E. coli (PCR) H. influenzae (PCR) Klebsiella aerogenes (PCR) Klebsiella oxytoca PCR Klebsiella pneumoniae List. monocytogenes PCR N. meningitidis (PCR) Proteus species (PCR) Salmonella spp. (PCR) Serratia marcescens PCR Staphylococcus sp PCR Staph aureus (PCR) mecA/C & MREJ Resist Gene mecA/C-Methicil Resis Gene mcr-1 Colistin Res Gene PCR Staph epidermidis (PCR) Staph lugdunensis PCR S. maltophilia (PCR) Streptococcus sp PCR Group A Strep (PCR) Strep agalactiae (PCR) Strep pneumoniae (PCR) P. aeruginosa (PCR) Marisol/B-Vanco Res Genes blaIMP Car res Gene PCR KPC-Carbap Res Gene PCR blaNDM Car Res Gene PCR OXA-48 Carbapenem Resis Gene (PCR) blaVIM Car Res Gene PCR CTX-M Gene Resistance (PCR) 08/31/25 07:59 WBC RBC Hgb Hct MCV MCH MCHC RDW Plt Count Neut % (Auto) Lymph % (Auto) Dixon % (Auto) Eos % (Auto) Baso % (Auto) Neut # (Auto) Lymph # (Auto) Dixon # (Auto) Eos # (Auto) Baso # (Auto) Sodium Potassium Chloride Carbon Dioxide BUN Creatinine Estimated GFR BUN/Creatinine Ratio Glucose POC Whole Bld Glucose 99 Calcium Magnesium Ketones A.calcoaceticus-baumannii cmplx PCR Bacteroides fragilis Jennifer albicans (PCR) Jennifer auris (PCR) C. glabrata (PCR) C. krusei (PCR) C. parapsilosis (PCR) C. tropicalis (PCR) C. neoform/gattii (PCR) Enterobacterales (PCR) E. cloacae complex PCR Enterococc faecalis PCR Enterococc faecium PCR E. coli (PCR) H. influenzae (PCR) Klebsiella aerogenes (PCR) Klebsiella oxytoca PCR Klebsiella pneumoniae List. monocytogenes PCR N. meningitidis (PCR) Proteus species (PCR) Salmonella spp. (PCR) Serratia marcescens PCR Staphylococcus sp PCR Staph aureus (PCR) mecA/C & MREJ Resist Gene mecA/C-Methicil Resis Gene mcr-1 Colistin Res Gene PCR Staph epidermidis (PCR) Staph lugdunensis PCR S. maltophilia (PCR) Streptococcus sp PCR Group A Strep (PCR) Strep agalactiae (PCR) Strep pneumoniae (PCR) P. aeruginosa (PCR) Marisol/B-Vanco Res Genes blaIMP Car res Gene PCR KPC-Carbap Res Gene PCR blaNDM Car Res Gene PCR OXA-48 Carbapenem Resis Gene (PCR) blaVIM Car Res Gene PCR CTX-M Gene Resistance (PCR) PFSH Medical History (Updated 08/31/25 @ 07:15 by Rogelio Kamara MD) Diabetes Social History household members: family and friend(s) Smoking Status: Current some day smoker alcohol intake: never Assessment & Plan Time-Based Coding :: [TOTAL MINUTES] spent with patient and on the chart (including review of chart, obtaining history, exam, reviewing outside data, placing orders, documenting exam and treatment plan, and counseling patient) on [DATE]. Quality VTE Deep Vein Thrombosis/Pulmonary Embolism Present on Admission: No
--- NOTE | 2025-08-31 12:26 | DIET.CONS ---
Dietary Consultation Note Admission Date: 08/28/2025 12:40 Assessment: 50 y F admitted for DKA. Dietitian consulted for once DKA resolves. Met with pt at bedside who reports hx of gastroparesis and consequently highs and lows. In between primary care providers. Has not had CGM in 5-7 months. Running low on insulin at home after injecting so much before admission d/t highs. Is interested in getting insulin pump. Interested in seeing DM educator OP. Attempting to eat foods. Ht: 170.18 cm Wt: 80 kg BMI: 25.5 UBW: - Last BM: 08/28/25 (08/28/25 14:21) MNA: 12 Srinivas Score: 21 Diet: 08/29/25 Lunch Carbohydrate Consistent Diet Diet Modifications: Carbohydrate level: Medium (3 CHO) Reflex DM orders: No Food Texture: Level 7 - Regular Liquid Consistency: Level 0 - Thin Nutrition Percent Meal Consumed 100% 08/30/25 18:00 Percent Meal Consumed 25% 08/29/25 18:00 Percent Meal Consumed 25% 08/29/25 14:00 Labs: RBC 4.00 X10^6/uL (4.0-5.2) 08/31/25 04:20 Hgb 11.9 g/dL (12.0-16.0) L 08/31/25 04:20 Hct 34.0 % (36-46) L 08/31/25 04:20 Creatinine 0.45 mg/dL (0.52-1.04) L 08/31/25 04:20 Hemoglobin A1c 11.8 % (4.0-6.0) H 08/28/25 07:30 Lactate 1.8 mmol/L (0.7-2.1) 08/28/25 07:30 NT-Pro-B Natriuret Pep 195 pg/mL (<125) H 08/28/25 07:30 Nutrition Diagnosis: Altered nutrition related lab values r/t endocrine dysfunction, altered GI motility/structure/function, and no access to helpful supplies (pump/CGM) aeb 11.8% A1c on 08/28/25, T1DM, gastroparesis Interventions: 1. Recc OP appt once established w PCP for insulin pump; provided DM educ. card 2. Messaged hospitalist to write Rx for CGM on d/c paperwork 3. Provided CGM sample 4. Encouraged soft foods Monitoring/Evaluations: BG, f/u PRN Electronically Signed by: Mirta Grace 08/31/25 12:26 Clinical Dietitian [address] [id number]
[2025-08-31] MEDS: ONDANSETRON 4 MG/2 ML INJ IV (14:23)
[2025-08-31] MEDS: MELATONIN 3 MG TABLET 6 MG PO (20:36)
[2025-08-31 22:18] LABS: HEMOLYSIS < 15 (0-50); Potassium 3.2 mmol/L (3.4-5.1)
[2025-09-01] MEDS: METOCLOPRAMIDE 10 MG/2 ML INJ IV ×2 (02:02→09:57)
[2025-09-01 04:00] VITALS: BP 185/95; PULSE 74; RESP 16; TEMP 36.3; O2SAT 99
[2025-09-01 05:36] LABS: Blood Urea Nitrogen 3 mg/dL (7-17); Calcium 8.0 mg/dL (8.4-10.2); Carbon Dioxide 28 mmol/L (22-32); Chloride 106 mmol/L (98-107); Estimated Glomerular Filt Rate > 60 mL/min (>60); Glucose 63 mg/dL (70-99); HEMOLYSIS < 15 (0-50); Potassium 3.3 mmol/L (3.4-5.1); Sodium 140 mmol/L (137-145)
[2025-09-01 06:06] VITALS: BP 195/90; PULSE 79; O2SAT 100
--- NOTE | 2025-09-01 07:20 | P.PN_ITS ---
Subjective Subjective Date Patient Seen: 09/01/25 Time Patient Seen: 07:20 Interval history: Feeling better Tolerating diet Exam Vital Signs (past 8 hours): - 09/01/25 04:00 Temperature 97.3 F L Pulse Rate 74 Respiratory Rate 16 Blood Pressure 185/95 H Pulse Oximetry 99 Oxygen Delivery Method Room Air Oxygen Flow Rate 0 Narrative Exam Narrative: ABD: soft, non-peritoneal exam Objective Labs 08/31/25 04:20 09/01/25 04:32 Labs: Laboratory Results - last 24 hr 08/31/25 08/31/25 08/31/25 07:59 11:46 16:35 Sodium Potassium Chloride Carbon Dioxide BUN Creatinine Estimated GFR BUN/Creatinine Ratio Glucose POC Whole Bld Glucose 99 111 H 68 L Calcium 08/31/25 08/31/25 08/31/25 17:10 20:40 22:02 Sodium Potassium 3.2 L Chloride Carbon Dioxide BUN Creatinine Estimated GFR BUN/Creatinine Ratio Glucose POC Whole Bld Glucose 100 H 97 Calcium 09/01/25 04:32 Sodium 140 Potassium 3.3 L Chloride 106 Carbon Dioxide 28 BUN 3 L Creatinine 0.47 L Estimated GFR > 60 BUN/Creatinine Ratio 6.4 Glucose 63 L POC Whole Bld Glucose Calcium 8.0 L PFSH Medical History (Updated 08/31/25 @ 07:15 by Rogelio Kamara MD) Diabetes Social History household members: family and friend(s) Smoking Status: Current some day smoker alcohol intake: never Assessment & Plan Assessment and plan (1) Esophagitis determined by endoscopy: Status: Acute (2) Gastritis: Qualifiers: Gastritis type: unspecified gastritis Chronicity: acute Gastritis bleeding: presence of bleeding unspecified Qualified Code(s): K29.00 - Acute gastritis without bleeding Status: Acute Plan Esophagitis/gastritis - empiric treatment for fungal esophagitis, H pylori Clinically improved Biopsies pending Likely home today Time-Based Coding :: [TOTAL MINUTES] spent with patient and on the chart (including review of chart, obtaining history, exam, reviewing outside data, placing orders, documenting exam and treatment plan, and counseling patient) on [DATE]. 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
--- NOTE | 2025-09-01 08:21 | P.DS_ITS ---
History of Present Illness History of Present Illness Date Patient Seen: 09/01/25 Chief complaint: High Blood Sugar Narrative: Chief complaint: Intractable nausea vomiting leading to hematemesis and precipitation of DKA in a type 1 diabetic History of present illness: 08/28: 50-year-old female with type 1 diabetes, prior history bleeding ulcer, and occasional tobacco use who presents to the emergency department complaining of nausea, profuse vomiting and diarrhea. She reports she was in her usual state of health until a couple days prior to admission, when she developed nausea and vomiting. She reports initially the emesis consisted of food products. Then it became dark brown, nearly black per her report. She described it looking like coffee grounds. She notes thereafter, she developed profuse liquid black diarrhea. She reports it got so bad she could not tell when she was passing stool. Her daughters had to help clean her up. She was at the point where she could not hold down even a glass of water. Her blood sugars had been as high as 500. She gave herself 100 units of insulin in the last 24 hours, briefly got it down to 130 but it continued to go back up. She was having dizziness and lightheadedness as well. Some abdominal pain and cramping. She reports a prior history of a gastric ulcer with bleeding some years ago. She was on a 12 week course of a PPI at that time. She does not recall if it was H pylori positive or not. She denies any use of aspirin or NSAIDs. She is not steroid dependent. She does smoke intermittently. She does not drink any alcohol. She reports she took her Tresiba this morning, 25 units. She does not recall when her last hemoglobin A1c was but thinks it was about a year ago. She notes her blood sugars are typically in the 180s to low 200s. She has had significant lows in the past although none recently. She does not typically have high blood sugars beyond the mid 200s. No fevers or chills. No ill exposures. She does note a few weeks ago she developed some abdominal discomfort which was reminiscent of the abdominal pain she had with her ulcer. She actually considered restarting Prilosec, but had not done so Hospital course: 08/29: Patient is still has wide-open anion gap of this morning insulin infusion resumed as dextrose infusion patient is having severe dysphagia and discomfort were unable to perform EGD today 08/30: Anion gap is closed electrolytes normal patient is prepared to undergo EGD is NPO today for this she is alert and cogent per recommendations of surgery was started on H pylori regimen and antifungal regimen for suspicious findings of gastritis for H pylori gastritis and Jennifer esophagitis 08/31: Is no longer vomiting is just having some esophageal pain with swallowing any liquids has been on 1 day of Diflucan and H pylori quadruple therapy diabetes seems to be in control fair chance he will be stable enough to go home tomorrow 09/01: Tolerating diet feeling better ready for discharge today we will follow up on 2 days for a BNP and with Dr. Kamara in 2 weeks Review of systems: No palpitations shortness for No fever or chills rigors The paresthesia paresis Physical exam: Alert cogent no acute distress HEENT unremarkable No labored respirations Extremities no edema Neuro nonfocal Assessment and plan: DKA * Resolved * Advancing diet Upper GI bleed likely secondary to erosive esophagitis and gastritis without findings of ulceration or duodenitis in the duodenal * Symptoms improving on: * Diflucan * PPI * H pylori regimen Code status: * Full Prophylaxis * Contraindicated due to GI bleed Disposition: * Discharge to home * BMP in 2 days * Follow up with Dr. Kamara in 2 weeks Time based billing: * 35 minutes were involved in evaluation of this patient including [id number] evaluation physical examination discussion with surgery discussion with case management Discharge Providers Provider Date of admission: 08/28/25 12:40 Discharge Date: 09/01/25 Consults: 08/28/25 11:37 Consult to Dietitian, Adult Routine Comment: Reason For Exam: Once DKA resolved 08/29/25 07:53 Consult to Dietitian, Adult Routine Comment: Reason For Exam: Once DKA resolved Discharge provider: Jm Calderon MD Exam Vital Signs (past 8 hours): - 09/01/25 04:00 Temperature 97.3 F L Pulse Rate 74 Respiratory Rate 16 Blood Pressure 185/95 H Pulse Oximetry 99 Oxygen Delivery Method Room Air Oxygen Flow Rate 0 Objective Labs 08/31/25 04:20 09/01/25 04:32 Labs: Laboratory Results - last 24 hr 08/31/25 08/31/25 08/31/25 11:46 16:35 17:10 Sodium Potassium Chloride Carbon Dioxide BUN Creatinine Estimated GFR BUN/Creatinine Ratio Glucose POC Whole Bld Glucose 111 H 68 L 100 H Calcium 08/31/25 08/31/25 09/01/25 20:40 22:02 04:32 Sodium 140 Potassium 3.2 L 3.3 L Chloride 106 Carbon Dioxide 28 BUN 3 L Creatinine 0.47 L Estimated GFR > 60 BUN/Creatinine Ratio 6.4 Glucose 63 L POC Whole Bld Glucose 97 Calcium 8.0 L 09/01/25 08:17 Sodium Potassium Chloride Carbon Dioxide BUN Creatinine Estimated GFR BUN/Creatinine Ratio Glucose POC Whole Bld Glucose 90 Calcium PFSH Medical History (Updated 08/31/25 @ 07:15 by Rogelio Kamara MD) Diabetes Social History household members: family and friend(s) Smoking Status: Current some day smoker alcohol intake: never Discharge Plan Discharge orders & Medications Discharge Orders: Discharge (Order); Ordered 09/01/25 Ordered By: Jm Calderon Prescriptions: New fluconazole 100 mg Tablet 200 mg PO DAILY Qty: 8 0RF clarithromycin 500 mg Tablet 500 mg PO BID Qty: 20 0RF metronidazole 500 mg Tablet 500 mg PO TID Qty: 30 0RF potassium chloride [Klor-Con M20] 20 mEq Tablet,Er Particles/Crystals 40 meq PO BIDWM Qty: 10 0RF amoxicillin 250 mg Capsule 1,000 mg PO BID 10 Days Qty: 120 0RF insulin lispro [Admelog U-100 Insulin lispro] 100 unit/mL Solution 4 unit SUBCUT AC Qty: 100 0RF miscellaneous medical supply Kit 3 ea miscellaneous ACHS Qty: 6 0RF Rx Instructions: Dexcom G7 3 per month Change every 10 days Directions: use to check glucose metoclopramide HCl [Reglan] 10 mg tablet 10 mg PO Q6H PRN (Reason: nausea and vomiting) Qty: 30 1RF miscellaneous medical supply Misc 1 ea miscellaneous .once Qty: 1 0RF Rx Instructions: Basic metabolic profile 09/03/2025 at walk-in clinic Continued insulin lispro [Humalog KwikPen Insulin] 100 unit/mL insulin pen 1 sliding scale dose SUBCUT USEASDIRECTD Qty: 100 0RF Changed insulin degludec [Tresiba U-100 Insulin] 100 unit/mL solution 40 unit SUBCUT DAILY Qty: 100 0RF Follow up/Referrals: Rogelio Kamara MD [Physician, General Surgery] - 2 Weeks Referral Note: Pathology results Visit Report/Discharge Packet Instructions: DI for Gastritis, DI for Gastroparesis, DI for Esophagitis Quality VTE Deep Vein Thrombosis/Pulmonary Embolism Present on Admission: No
[2025-09-01] MEDS: PANTOPRAZOLE 40 MG VIAL IV (08:53)
[2025-09-01] MEDS: NYSTATIN SUSP 500,000 UNIT/5 ML UDC 500000 UNIT PO (08:53)
[2025-09-01] MEDS: POTASSIUM CHLORIDE 20 MEQ TAB 40 MEQ PO (08:54)
[2025-09-01] MEDS: FLUCONAZOLE 100 MG TABLET 200 MG PO (08:54)
[2025-09-01] MEDS: CLARITHROMYCIN 500 MG TABLET PO (08:55)
[2025-09-01] MEDS: AMOXICILLIN 250 MG CAPSULE 1000 MG PO (08:55)
[2025-09-01] MEDS: INSULIN GLARGINE 100 UNIT/ML 3ML PEN 20 UNIT SUBCUT (09:51)
== END 2025-09-01 10:44 | disposition home or self-care (01) | DRG 380 ==
LOC: ED 12:23 → AC 12:40 → ICU 13:56
PROVIDERS: Internal Medicine; Surgery; Admitting Provider Family Medicine; Emergency Provider Emergency Medicine; Referring Provider Emergency Medicine; Visit Provider Family Medicine
PROC: 0DJ08ZZ Inspection of Upper Intestinal Tract, Via Natural or Artificial Opening Endoscopic (ICD-10-PCS; principal; 2025-08-30 15:30)
DX: K22.11 Ulcer of esophagus with bleeding (principal); E10.10 Type 1 diabetes mellitus with ketoacidosis without coma; A04.8 Other specified bacterial intestinal infections; K29.01 Acute gastritis with bleeding; F17.200 Nicotine dependence, unspecified, uncomplicated; E87.6 Hypokalemia; Z87.11 Personal history of peptic ulcer disease
CPT/HCPCS: 36415; 43239; 71045; 74174; 80048; 80053; 81003; 81015; 82009; 82805; 82947; 82962; 83036; 83605; 83690; 83735; 83880; 84132; 84484; 85014; 85018; 85025; 86850; 86900; 86901; 87040; 87077; 87086; 87154; 93005; 93010; 96365; 96366; 96368; 96375; 99231; 99233; 99284; 99291; J0696; J1171; J1815; J2405; J2470; J2704; J2765; J3010; J3480; J7030; J7050; J7120; Q9967